=== PATIENT | male | born 1950 | race Caucasian/White ===

== ENCOUNTER 2018-03-29 05:46 | Day surgery (SDC) | payer MEDICARE ==
[2018-03-29] MEDS ORDERED: Ketamine HCl 50 MG/ML IV ONE (05:47)
[2018-03-29] MEDS ORDERED: DIPRIVAN 200 MG/20 ML IV ONE (05:47)
[2018-03-29] MEDS ORDERED: Lactated Ringers 1,000 ML IV ONE (06:18)
[2018-03-29] MEDS ORDERED: Lactated Ringers 1,000 ML IV SCH (06:30)
[2018-03-29 07:09] LABS: Hematocrit 42.9 % (42-50); Hemoglobin 14.9 gm/dl (12.5-18.0); Mean Corpuscular Hemoglobin 29.9 pg (26-32); Mean Corpuscular Hgb Concent. 34.7 g/dl (32-36); Mean Platelet Volume 10.7 fl (6-9.5); Platelet Count 213 K/mm3 (150-450); Red Blood Count 4.99 M/mm3 (4.1-5.6); White Blood Count 7.5 K/mm3 (4.0-10.5)
[2018-03-29 08:27] VITALS: BP 151/80; PULSE 73; O2SAT 95
--- NOTE | 2018-03-29 08:51 | OP ---
SURGERY DATE/TIME: 03/29/2018 0705 PREOPERATIVE DIAGNOSES: 1) Persistent gastroesophageal reflux disease. 2) History of gastric ulcer disease. 3) Screening colonoscopy. POSTOPERATIVE DIAGNOSES: 1) Normal EGD. 2) Normal colon. PROCEDURES: 1) EGD. 2) Colonoscopy. SURGEON: Salvador Arevalo M.D. ANESTHESIA: MAC by Dano Levy CRNA. ESTIMATED BLOOD LOSS: None. SPECIMENS: None. DESCRIPTION OF PROCEDURE: After informed written consent was obtained, the patient was taken to the endoscopy suite. She underwent monitored anesthesia and a bite block was inserted. The endoscope was then inserted into the posterior oropharynx and under direct visualization the esophagus was traversed. The esophageal mucosa was within normal limits free of lesions or defects. The gastroesophageal junction likewise was normal. The stomach had a normal rugated gastric mucosa free of any lesions or defects. The pylorus was traversed and the first and second portions of the duodenum was within normal limits as well. The scope was removed. Again on withdrawal the mucosal structures were free of lesions or defects. The scope was removed and the scopes were switched. A digital rectal exam showed normal sphincter tone and no internal lesions. The scope was inserted into the rectum and sequentially the entire colonic mucosa was traversed. The level of cecum was reached and verified with direct visualization of ileocecal valve. Upon withdrawal careful mucosal inspection revealed no gross abnormalities. Retroflexion was performed prior to withdrawal and was within normal limits as well. The scope was removed and the patient was transferred to the recovery room in good condition.
[2018-03-29 10:37] LABS: ALBUMIN 4.3 g/dL (3.5-5.0); ALKALINE PHOSPHATASE 149 U/L (38-126); ANION GAP 15.1 MEQ/L (5-15); BLOOD UREA NITROGEN 11 mg/dL (9-20); CHLORIDE 95 mmol/L (98-107); Calcium 9.7 mg/dL (8.4-10.2); Carbon Dioxide 26 mmol/L (22-30); Cholesterol 133 mg/dL (50-200); Creatinine 1 0.92 mg/dL (0.66-1.25); Glucose 123 mg/dL (74-106); HDL CHOLESTEROL 33 mg/dL (40-60); LDL, DIRECT 65 mg/dL (30-100); Potassium 4.2 mmol/L (3.5-5.1); SGOT/AST 21 U/L (17-59); SGPT/ALT 18 U/L (0-50); SODIUM 132 mmol/L (137-145); TRIGLYCERIDE 101 mg/dL (30-150); Total Protein 7.4 g/dL (6.3-8.2)
== END 2018-03-29 08:40 | disposition home or self-care (01) ==
LOC: SDC 05:46
PROVIDERS: ATTEND Family Medicine
DX: K21.9 Gastro-esophageal reflux disease without esophagitis (principal); Z87.11 Personal history of peptic ulcer disease; E66.9 Obesity, unspecified; Z12.11 Encounter for screening for malignant neoplasm of colon; J44.9 Chronic obstructive pulmonary disease, unspecified; E11.9 Type 2 diabetes mellitus without complications; Z79.4 Long term (current) use of insulin; Z79.899 Other long term (current) drug therapy
CPT/HCPCS: 36415; 80053; 80061; 82962; 83036; 83721; 84443; 85027; J2704

== ENCOUNTER 2020-01-31 10:39 | Emergency (ER) | payer MEDICARE ==
--- NOTE | 2020-01-31 11:07 | ERPHSYRPT ---
- History of Present Illness Time Seen by Provider: 01/31/20 10:43 Source: patient Exam Limitations: no limitations Patient Subjective Stated Complaint: Suicidal ideation Triage Nursing Assessment: Patient ambulated back to ED and transferred self to bed. Patient A+O X 3. Patient's skin pink, warm and dry. Patient complains of suicidal ideation for the past 2 months. Patient states he does have a plan and would jump off of his apartment building that is five stories high. Patient states he is depressed due to his children not having anything to do with him and he thinks his is cheating on him. Patient denies pain or discomfort. Physician History: Patient is here for suicidal ideation. Patient does have a plan. He states that he would jump off his building. Patient states that he has had suicide attempts in the past. Patient states that he is depressed secondary to his kids not visiting him and he believes that his is cheating on him. He has no fevers, chills, nausea, vomiting. No chest pain, shortness of breath. Allergies/Adverse Reactions: adhesive Adverse Reaction (Unknown, Verified 01/31/20 10:49) adhesive tape, swell and itches Home Medications: Ascorbate Calcium [Vitamin C] 500 mg PO DAILY 10/17/13 [History] Atorvastatin Calcium [Lipitor] 40 mg PO DAILY 10/17/13 [History] Calcium Carb & Citrate/Vit D3 [Calcium + Vitamin D3 Caplet] 1 each PO BID 10/17/13 [History] Echinacea 167 mg PO BID 10/17/13 [History] Lacosamide [Vimpat] 200 mg PO BID 10/17/13 [History] Levetiracetam [Keppra] 1,500 mg PO BID 10/17/13 [History] Metformin HCl [Metformin ER Osmotic] 500 mg PO BID 10/17/13 [History] PANTOPRAZOLE 40 mg Tablet [Protonix 40MG Tablet] 40 mg PO DAILY 10/17/13 [History] Vitamin E 400 unit PO DAILY 10/17/13 [History] Albuterol Sulfate [Proair Hfa] 2 puff IH UD PRN 03/25/15 [History] Cyanocobalamin (Vitamin B-12) [Vitamin B-12] 1,000 mcg SL DAILY 03/25/15 [History] Pregabalin 50 mg [Lyrica 50MG] 50 mg PO TID 03/25/15 [History] Tiotropium [place] [Spiriva] 18 mcg IH LUNCH 03/25/15 [History] Hx Tetanus, Diphtheria Vaccination/Date Given: No Hx Influenza Vaccination/Date Given: No Hx Pneumococcal Vaccination/Date Given: No Immunizations Up to Date: Yes Travel Risk - International Travel Have you traveled outside of the country in past 3 weeks: No - Coronavirus Screening Are you exhibiting any of the following symptoms?: No Close contact with a COVID-19 positive Pt in past 14-21 Days: No - Review of Systems Constitutional: No Fever, No Chills Eyes: No Symptoms Ears, Nose, & Throat: No Symptoms Respiratory: No Cough, No Dyspnea Cardiac: No Chest Pain, No Edema, No Syncope Abdominal/Gastrointestinal: No Abdominal Pain, No Nausea, No Vomiting, No Diarrhea Genitourinary Symptoms: No Dysuria Musculoskeletal: No Back Pain, No Neck Pain Skin: No Rash Neurological: No Dizziness, No Focal Weakness, No Sensory Changes Psychological: Suicidal Ideations Endocrine: No Symptoms All Other Systems: Reviewed and Negative - Past Medical History Pertinent Past Medical History: Yes Neurological History: Seizures ENT History: No Pertinent History Cardiac History: High Cholesterol, Other Respiratory History: COPD Endocrine Medical History: Diabetes Type II Musculoskeletal History: Arthritis, Osteoporosis, Other GI Medical History: GERD, Ulcer History: No Pertinent History Psycho-Social History: Depression Male Reproductive Disorders: No Pertinent History Other Medical History: Disc compressions, " Vascular nerve stimulator" - Past Surgical History Past Surgical History: Yes Neuro Surgical History: No Pertinent History Cardiac: Cardiac Catheterization Respiratory: No Pertinent History Gastrointestinal: Cholecystectomy, Other Genitourinary: No Pertinent History Musculoskeletal: No Pertinent History Male Surgical History: No Pertinent History, Testicular Surgery Other Surgical History: Two cysts removed- one from big toe and one from testical, " Vascular nerve stimulator" - Social History Smoking Status: Never smoker How long have you smoked: 6 months Exposure to second hand smoke: Yes Drug Use: none Patient Lives Alone: No - Nursing Vital Signs Nursing Vital Signs: Initial Vital Signs Temperature 97.9 F 01/31/20 10:50 Pulse Rate 102 H 01/31/20 10:50 Respiratory Rate 18 01/31/20 10:50 Blood Pressure 126/78 01/31/20 10:50 O2 Sat by Pulse Oximetry 97 01/31/20 10:50 Pain Scale Pain Intensity 0 - Physical Exam General Appearance: no apparent distress, alert Eye Exam: PERRL/EOMI, eyes nml inspection Ears, Nose, Throat Exam: normal ENT inspection, TMs normal, pharynx normal, moist mucous membranes Neck Exam: normal inspection, non-tender, supple, full range of motion Respiratory Exam: normal breath sounds, lungs clear, No respiratory distress Cardiovascular Exam: regular rate/rhythm, normal heart sounds, normal peripheral pulses Gastrointestinal/Abdomen Exam: soft, normal bowel sounds, No tenderness, No mass Back Exam: normal inspection, normal range of motion, No CVA tenderness, No vertebral tenderness Extremity Exam: normal inspection, normal range of motion, pelvis stable Neurologic Exam: alert, oriented x 3, cooperative, normal mood/affect, nml cerebellar function, nml station & gait, sensation nml, No motor deficits Skin Exam: normal color, warm, dry, No rash Lymphatic Exam: No adenopathy SpO2 Interpretation: normal SpO2: 97 Comments: 01/31/20 11:06 Sad affect and endorses suicidal ideation - Course EKG Interpreted by Me: RATE, Sinus Rhythm Ordered Tests: Active Orders 24 hr Category Date Time Status EKG-ER Only STAT Care 01/31/20 11:02 Active ACETAMINOPHEN Stat Lab 01/31/20 11:20 Completed CBC W DIFF Stat Lab 01/31/20 11:20 Completed CMP Stat Lab 01/31/20 11:20 Completed CULTURE,URINE Stat Lab 01/31/20 11:45 Received ETHYL ALCOHOL Stat Lab 01/31/20 11:20 Completed SALICYLATE Stat Lab 01/31/20 11:20 Completed UA W/RFX UR CULTURE Stat Lab 01/31/20 11:45 Completed Urine Triage Profile Stat Lab 01/31/20 11:45 Completed Medication Summary Discontinued Medications Generic Name Dose Route Start Last Admin Trade Name Freq PRN Reason Stop Dose Admin Albuterol/Ipratropium 3 ml 01/31/20 16:51 Duoneb 0.5-3 Mg/3 Ml Neb IH 01/31/20 16:52 STAT ONE Albuterol/Ipratropium Confirm 01/31/20 16:55 Duoneb 0.5-3 Mg/3 Ml Neb Administered 01/31/20 16:56 Dose 3 ml IH .STK-MED ONE Lab/Rad Data: Laboratory Result Diagrams 01/31/20 11:20 01/31/20 11:20 Laboratory Results 01/31/20 01/31/20 01/31/20 Range/Units 11:45 11:45 11:20 WBC (4.0-10.5) K/mm3 RBC (4.1-5.6) M/mm3 Hgb (12.5-18.0) gm/dl Hct (42-50) % MCV (78-100) fl MCH (26-32) pg MCHC (32-36) g/dl RDW (11.5-14.0) % Plt Count (150-450) K/mm3 MPV (7.5-11.0) fl Gran % (36.0-66.0) % Eos # (Auto) (0-0.5) Absolute Lymphs (auto) (1.0-4.6) Absolute Monos (auto) (0.0-1.3) Lymphocytes % (24.0-44.0) % Monocytes % (0.0-12.0) % Eosinophils % (0.00-5.0) % Basophils % (0.0-0.4) % Absolute Granulocytes (1.4-6.9) Basophils # (0-0.4) Sodium 135 L (137-145) mmol/L Potassium 4.3 (3.5-5.1) mmol/L Chloride 101 (98-107) mmol/L Carbon Dioxide 27 (22-30) mmol/L Anion Gap 11.2 (5-15) MEQ/L BUN 13 (9-20) mg/dL Creatinine 0.91 (0.66-1.25) mg/dL Estimated GFR > 60.0 ML/MIN Glucose 162 H (74-106) mg/dL Calcium 9.3 (8.4-10.2) mg/dL Total Bilirubin 0.60 (0.2-1.3) mg/dL AST 20 (17-59) U/L ALT 17 (0-50) U/L Alkaline Phosphatase 117 (38-126) U/L Serum Total Protein 6.9 (6.3-8.2) g/dL Albumin 4.0 (3.5-5.0) g/dL Urine Color YELLOW (YELLOW) Urine Appearance CLEAR (CLEAR) Urine pH 5.0 (5-6) Ur Specific [place] 1.021 (1.005-1.025) Urine Protein 100 (Negative) Urine Ketones NEGATIVE (NEGATIVE) Urine Blood NEGATIVE (0-5) Urban/ul Urine Nitrite NEGATIVE (NEGATIVE) Urine Bilirubin NEGATIVE (NEGATIVE) Urine Urobilinogen 4 (0-1) mg/dL Ur Leukocyte Esterase NEGATIVE (NEGATIVE) Urine WBC (Auto) 6-10 (0-5) /HPF Urine RBC (Auto) 0-2 (0-2) /HPF U Epithel Cells (Auto) RARE (FEW) /HPF Urine Bacteria (Auto) RARE (NEGATIVE) /HPF Urine Mucus (Auto) MODERATE (NEGATIVE) /HPF Urine Culture Reflexed YES (NO) Urine Glucose NEGATIVE (NEGATIVE) mg/dL Salicylates < 1.0 L (2-20) mg/dL Urine Opiates Level NEGATIVE (NEGATIVE) Ur Methadone NEGATIVE (NEGATIVE) Acetaminophen < 10 L (10-30) ug/ml Urine Barbiturates NEGATIVE (NEGATIVE) Ur Phencyclidine (PCP) NEGATIVE (NEGATIVE) Urine Amphetamine NEGATIVE (NEGATIVE) U Benzodiazepine Level NEGATIVE (NEGATIVE) Urine Cocaine NEGATIVE (NEGATIVE) Urine Marijuana (THC) NEGATIVE (NEGATIVE) Ethyl Alcohol < 10 (0-10) mg/dL 01/31/20 Range/Units 11:20 WBC 7.7 (4.0-10.5) K/mm3 RBC 4.83 (4.1-5.6) M/mm3 Hgb 14.3 (12.5-18.0) gm/dl Hct 44.1 (42-50) % MCV 91.3 (78-100) fl MCH 29.6 (26-32) pg MCHC 32.4 (32-36) g/dl RDW 14.3 H (11.5-14.0) % Plt Count 217 (150-450) K/mm3 MPV 10.8 (7.5-11.0) fl Gran % 73.5 H (36.0-66.0) % Eos # (Auto) 0.09 (0-0.5) Absolute Lymphs (auto) 1.27 (1.0-4.6) Absolute Monos (auto) 0.65 (0.0-1.3) Lymphocytes % 16.5 L (24.0-44.0) % Monocytes % 8.5 (0.0-12.0) % Eosinophils % 1.2 (0.00-5.0) % Basophils % 0.3 (0.0-0.4) % Absolute Granulocytes 5.65 (1.4-6.9) Basophils # 0.02 (0-0.4) Sodium (137-145) mmol/L Potassium (3.5-5.1) mmol/L Chloride (98-107) mmol/L Carbon Dioxide (22-30) mmol/L Anion Gap (5-15) MEQ/L BUN (9-20) mg/dL Creatinine (0.66-1.25) mg/dL Estimated GFR ML/MIN Glucose (74-106) mg/dL Calcium (8.4-10.2) mg/dL Total Bilirubin (0.2-1.3) mg/dL AST (17-59) U/L ALT (0-50) U/L Alkaline Phosphatase (38-126) U/L Serum Total Protein (6.3-8.2) g/dL Albumin (3.5-5.0) g/dL Urine Color (YELLOW) Urine Appearance (CLEAR) Urine pH (5-6) Ur Specific [place] (1.005-1.025) Urine Protein (Negative) Urine Ketones (NEGATIVE) Urine Blood (0-5) Urban/ul Urine Nitrite (NEGATIVE) Urine Bilirubin (NEGATIVE) Urine Urobilinogen (0-1) mg/dL Ur Leukocyte Esterase (NEGATIVE) Urine WBC (Auto) (0-5) /HPF Urine RBC (Auto) (0-2) /HPF U Epithel Cells (Auto) (FEW) /HPF Urine Bacteria (Auto) (NEGATIVE) /HPF Urine Mucus (Auto) (NEGATIVE) /HPF Urine Culture Reflexed (NO) Urine Glucose (NEGATIVE) mg/dL Salicylates (2-20) mg/dL Urine Opiates Level (NEGATIVE) Ur Methadone (NEGATIVE) Acetaminophen (10-30) ug/ml Urine Barbiturates (NEGATIVE) Ur Phencyclidine (PCP) (NEGATIVE) Urine Amphetamine (NEGATIVE) U Benzodiazepine Level (NEGATIVE) Urine Cocaine (NEGATIVE) Urine Marijuana (THC) (NEGATIVE) Ethyl Alcohol (0-10) mg/dL - Progress Progress: improved Progress Note: 01/31/20 11:06 We will do basic psychiatric labs, EKG, consult to the [facility]. 01/31/20 16:58 Patient was medically cleared at this point time. Transferred to [facility] after evaluation. They felt that he needed to be inpatient criteria. Therefore we admit the patient. Counseled pt/family regarding: lab results, diagnosis, need for follow-up - Departure Departure Disposition: Transfer Clinical Impression: Suicidal ideation Condition: Stable Critical Care Time: No Referrals: CITLALLI GARCIA MD [Primary Care Provider] - Instructions: Bipolar Disorder (DC)
[2020-01-31 11:36] LABS: Absolute Neutrophil Ct (ANC) 5.65 (1.4-6.9); BASOPHIL % 0.3 % (0.0-0.4); Basophil (Absolute #) 0.02 (0-0.4); Eosinophil % 1.2 % (0.00-5.0); Eosinophil (Absolute #) 0.09 (0-0.5); Hematocrit 44.1 % (42-50); Hemoglobin 14.3 gm/dl (12.5-18.0); Lymphocyte (Absolute #) 1.27 (1.0-4.6); Lymphocytes % 16.5 % (24.0-44.0); Mean Cell Volume 91.3 fl (78-100); Mean Corpuscular Hemoglobin 29.6 pg (26-32); Mean Corpuscular Hgb Concent. 32.4 g/dl (32-36); Mean Platelet Volume 10.8 fl (7.5-11.0); Monocyte (Absolute #) 0.65 (0.0-1.3); Monocytes % 8.5 % (0.0-12.0); Neutrophil % 73.5 % (36.0-66.0); Platelet Count 217 K/mm3 (150-450); Red Blood Count 4.83 M/mm3 (4.1-5.6); Red Cell Distribution Width 14.3 % (11.5-14.0); White Blood Count 7.7 K/mm3 (4.0-10.5)
[2020-01-31 11:47] LABS: ALKALINE PHOSPHATASE 117 U/L (38-126); ANION GAP 11.2 MEQ/L (5-15); BLOOD UREA NITROGEN 13 mg/dL (9-20); CHLORIDE 101 mmol/L (98-107); Calcium 9.3 mg/dL (8.4-10.2); Carbon Dioxide 27 mmol/L (22-30); Creatinine 1 0.91 mg/dL (0.66-1.25); Glucose 162 mg/dL (74-106); Potassium 4.3 mmol/L (3.5-5.1); SGOT/AST 20 U/L (17-59); SGPT/ALT 17 U/L (0-50); SODIUM 135 mmol/L (137-145); Total Protein 6.9 g/dL (6.3-8.2)
[2020-01-31 11:48] LABS: ACETAMINOPHEN < 10 ug/ml (10-30); ETHYL ALCOHOL < 10 mg/dL (0-10); SALICYLATE < 1.0 mg/dL (2-20)
[2020-01-31 12:04] LABS: Appearance CLEAR (CLEAR); Bacteria RARE /HPF (NEGATIVE); Bilirubin NEGATIVE (NEGATIVE); Blood NEGATIVE Ery/ul (0-5); Epithelial Cells RARE /HPF (FEW); Glucose NEGATIVE (NEGATIVE); Ketones NEGATIVE (NEGATIVE); Leukocyte Esterase NEGATIVE (NEGATIVE); Mucus MODERATE /HPF (NEGATIVE); Nitrite NEGATIVE (NEGATIVE); Protein,Urine Dip 100 (Negative); RBC 0-2 /HPF (0-2); Specific Gravity 1.021 (1.005-1.025); Urobilinogen 4 mg/dL (0-1)
[2020-01-31 12:09] LABS: Amphetamine,Urine NEGATIVE (NEGATIVE); Barbiturate,Urine NEGATIVE (NEGATIVE); Benzodiazepine,Urine NEGATIVE (NEGATIVE); Cocaine,Urine NEGATIVE (NEGATIVE); Methadone,Urine NEGATIVE (NEGATIVE); Opiate,Urine NEGATIVE (NEGATIVE); THC,Urine NEGATIVE (NEGATIVE)
[2020-01-31 12:19] LABS: PCP,Urine NEGATIVE (NEGATIVE)
[2020-01-31 14:05] VITALS: BP 119/58
[2020-01-31] MEDS ORDERED: DUONEB 0.5-3 MG/3 ml Neb IH ONE ×2 (16:51→16:55)
[2020-01-31 17:01] VITALS: PULSE 68; O2SAT 98
== END 2020-01-31 17:34 | disposition short-term general hospital (02) ==
LOC: ED 10:39
DX: R45.851 Suicidal ideations (principal); G40.909 Epilepsy, unspecified, not intractable, without status epilepticus; J44.9 Chronic obstructive pulmonary disease, unspecified; Z79.899 Other long term (current) drug therapy
CPT/HCPCS: 36415; 80053; 80307; 81001; 85025; 87086; 90791; 93005; 94640; 99285; G0480; Q3014; A9270-GY

== ENCOUNTER 2020-07-08 09:11 | Inpatient (IN) | payer MEDICARE ==
--- NOTE | 2020-07-08 09:14 | ERPHSYRPT ---
- History of Present Illness Time Seen by Provider: 07/08/20 09:14 Source: patient, family Exam Limitations: clinical condition Physician History: This is a 70-year-old white male who has confusion that started yesterday. The patient has a history of seizure disorder and is on Keppra. He also has history of depression and is on 3 medications that were started within the last few weeks and they include Cymbalta, Remeron and lithium. [place] was started within the last couple of weeks. Patient has a history of suicidal ideation and was recently discharged from [facility] inpatient therapy because of his symptoms. Patient has had suicidal attempts in the past. Patient has a history of COPD, gastroesophageal reflux disease and diabetes. Patient has not had a head injury. Patient ambulated on his own to the emergency room and into his patient room without difficulty. Patient states he has no pain anywhere. Timing/Duration: yesterday Severity: moderate Character of Deficits: none Deficits: no difficulties Baseline/Normal Cognition: alert oriented x 3 Current Cognition: alert but confused Baseline Gait: walks w/o assistance Associated Symptoms: confusion Allergies/Adverse Reactions: adhesive Adverse Reaction (Unknown, Verified 07/08/20 10:10) adhesive tape, swell and itches Home Medications: Ascorbate Calcium [Vitamin C] 500 mg PO TID 10/17/13 [History] Atorvastatin Calcium [Lipitor] 40 mg PO DAILY 10/17/13 [History] Calcium Carb & Citrate/Vit D3 [Calcium + Vitamin D3 Caplet] 1 each PO BID 10/17/13 [History] Echinacea 167 mg PO BID 10/17/13 [History] Lacosamide [Vimpat] 200 mg PO TID 10/17/13 [History] Metformin HCl [Metformin ER Osmotic] 500 mg PO BID 10/17/13 [History] PANTOPRAZOLE 40 mg Tablet [Protonix 40MG Tablet] 40 mg PO DAILY 10/17/13 [History] Vitamin E 400 unit PO DAILY 10/17/13 [History] Albuterol Sulfate [Proair Hfa] 2 puff IH UD PRN 03/25/15 [History] Cyanocobalamin (Vitamin B-12) [Vitamin B-12] 1,000 mcg SL DAILY 03/25/15 [History] Pregabalin 50 mg [Lyrica 50MG] 50 mg PO TID 03/25/15 [History] Brivaracetam [Briviact] 1 tab PO BID 07/08/20 [History] Budesonide/Formoterol Fumarate [Symbicort 160-4.5 Mcg Inhaler] 1 puff IH DAILY 07/08/20 [History] Duloxetine HCl [Cymbalta] 1 tab PO DAILY 07/08/20 [History] Iron 1 tab PO DAILY 07/08/20 [History] Lisinopril 10 mg [Zestril 10 MG] 1 tab PO DAILY 07/08/20 [History] [place] Carbonate 1 tab PO DAILY 07/08/20 [History] Meloxicam 1 tab PO DAILY 07/08/20 [History] Mirtazapine 30 mg [Remeron 30 mg] 1 tab PO HS 07/08/20 [History] Hx Tetanus, Diphtheria Vaccination/Date Given: No Hx Influenza Vaccination/Date Given: No Hx Pneumococcal Vaccination/Date Given: No Travel Risk - International Travel Have you traveled outside of the country in past 3 weeks: No - Coronavirus Screening Are you exhibiting any of the following symptoms?: No Close contact with a COVID-19 positive Pt in past 14-21 Days: No - Review of Systems Constitutional: No Symptoms Eyes: No Symptoms Ears, Nose, & Throat: No Symptoms Respiratory: No Symptoms Cardiac: No Symptoms Abdominal/Gastrointestinal: No Symptoms Genitourinary Symptoms: No Symptoms Musculoskeletal: No Symptoms Skin: No Symptoms Neurological: Other Psychological: No Symptoms (Confusion) Endocrine: No Symptoms Hematologic/Lymphatic: No Symptoms Immunological/Allergic: No Symptoms All Other Systems: Reviewed and Negative - Past Medical History Pertinent Past Medical History: Yes Neurological History: Seizures ENT History: No Pertinent History Cardiac History: High Cholesterol, Other Respiratory History: COPD Endocrine Medical History: Diabetes Type II Musculoskeletal History: Arthritis, Osteoporosis, Other GI Medical History: GERD, Ulcer History: No Pertinent History Psycho-Social History: Depression Male Reproductive Disorders: No Pertinent History Other Medical History: Disc compressions, " Vascular nerve stimulator" - Past Surgical History Past Surgical History: Yes Neuro Surgical History: No Pertinent History Cardiac: Cardiac Catheterization Respiratory: No Pertinent History Gastrointestinal: Cholecystectomy, Other Genitourinary: No Pertinent History Musculoskeletal: No Pertinent History Male Surgical History: No Pertinent History, Testicular Surgery Other Surgical History: Two cysts removed- one from big toe and one from testical, " Vascular nerve stimulator" - Social History Smoking Status: Never smoker How long have you smoked: 6 months Exposure to second hand smoke: Yes Drug Use: none Patient Lives Alone: No - Nursing Vital Signs Nursing Vital Signs: Initial Vital Signs Temperature 97.7 F 07/08/20 09:29 Pulse Rate 107 H 07/08/20 09:29 Respiratory Rate 20 07/08/20 09:29 Blood Pressure 125/70 07/08/20 09:29 O2 Sat by Pulse Oximetry 96 07/08/20 09:29 Pain Scale Pain Intensity 0 - Morris Coma Scale Best Eye Response (Jennifer): (4) open spontaneously Best Verbal Response (Morris): (4) confused conversation Best Motor Response (Jennifer): (6) obeys commands Jennifer Total: 14 - Physical Exam General Appearance: no apparent distress, alert, obese Eye Exam: bilateral eye: normal inspection, PERRL, EOMI Ears, Nose, Throat Exam: normal ENT inspection, moist mucous membranes Neck Exam: normal inspection, non-tender, supple, full range of motion Respiratory: normal breath sounds, lungs clear, airway intact, No chest tenderness, No respiratory distress Cardiovascular: regular rate/rhythm, normal heart sounds, normal peripheral pulses Gastrointestinal: soft, normal bowel sounds, No tenderness Rectal Exam: not done Back Exam: normal inspection, normal range of motion, No CVA tenderness, No vertebral tenderness Extremity Exam: normal inspection, normal range of motion, pelvis stable Mental Status: alert, cooperative, disoriented to place, 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 Exam: normal hearing, normal speech, PERRL, tongue midline, No facial droop Coordination/Gait: normal finger to nose, normal gait, normal cerebellar function Motor/Sensory: no motor deficit, no sensory deficit, no pronator drift Skin Exam: normal color, warm, dry SpO2 Interpretation: normal O2 Delivery: Room Air - Course Nursing assessment & vital signs reviewed: Yes EKG Interpreted by Me: RATE (96), Sinus Rhythm, NORMAL AXIS, NORMAL INTERVALS, NORMAL QRS, Other (No comparison EKG) Ordered Tests: Active Orders 24 hr Category Date Time Status Member Certification Manager STAT Care 07/08/20 09:41 Active Clean Catch Urine Specimen STAT Care 07/08/20 09:39 Active EKG-ER Only STAT Care 07/08/20 09:39 Active IV Insertion STAT Care 07/08/20 09:39 Active Pulse Oximetry (ED) STAT Care 07/08/20 09:39 Active cath [Cath for Specimen-Straight] STAT Care 07/08/20 11:45 Active HEAD WITHOUT CONTRAST [CT] Stat Exams 07/08/20 09:40 Completed ACETAMINOPHEN Stat Lab 07/08/20 10:10 Completed CBC W DIFF Stat Lab 07/08/20 10:10 Completed CMP Stat Lab 07/08/20 10:10 Completed CULTURE,URINE Stat Lab 07/08/20 09:45 Received ETHYL ALCOHOL Stat Lab 07/08/20 10:10 Completed LITHIUM Stat Lab 07/08/20 Ordered POCT GLUCOSE Stat Lab 07/08/20 09:37 Completed SALICYLATE Stat Lab 07/08/20 10:10 Completed UA W/RFX UR CULTURE Stat Lab 07/08/20 09:45 Completed Urine Triage Profile Stat Lab 07/08/20 09:45 Ordered Transfer Order Routine Transfer 07/08/20 Ordered Medication Summary Generic Name Dose Route Start Last Admin Trade Name Yonas PRN Reason Stop Dose Admin Sodium Chloride 500 mls @ 500 mls/hr 07/08/20 12:18 07/08/20 12:38 Sodium Chloride 0.9% 500 Ml IV 07/08/20 13:17 500 mls/hr .Q1H ONE Administration Lab/Rad Data: Laboratory Result Diagrams 07/08/20 10:10 07/08/20 10:10 Laboratory Results 07/08/20 07/08/20 07/08/20 Range/Units 10:10 10:10 10:10 WBC 8.3 (4.0-10.5) K/mm3 RBC 4.72 (4.1-5.6) M/mm3 Hgb 13.5 (12.5-18.0) gm/dl Hct 42.5 (42-50) % MCV 90.0 (78-100) fl MCH 28.6 (26-32) pg MCHC 31.8 L (32-36) g/dl RDW 14.4 H (11.5-14.0) % Plt Count 237 (150-450) K/mm3 MPV 11.0 (7.5-11.0) fl Gran % 77.6 H (36.0-66.0) % Eos # (Auto) 0.05 (0-0.5) Absolute Lymphs (auto) 1.12 (1.0-4.6) Absolute Monos (auto) 0.67 (0.0-1.3) Lymphocytes % 13.5 L (24.0-44.0) % Monocytes % 8.1 (0.0-12.0) % Eosinophils % 0.6 (0.00-5.0) % Basophils % 0.2 (0.0-0.4) % Absolute Granulocytes 6.41 (1.4-6.9) Basophils # 0.02 (0-0.4) Sodium 137 (137-145) mmol/L Potassium 4.8 (3.5-5.1) mmol/L Chloride 103 (98-107) mmol/L Carbon Dioxide 25 (22-30) mmol/L Anion Gap 14.1 (5-15) MEQ/L BUN 24 H (9-20) mg/dL Creatinine 1.41 H (0.66-1.25) mg/dL Estimated GFR 53.1 ML/MIN Glucose 205 H (74-106) mg/dL POC Glucometer (74 to 106) mg/dL Calcium 9.9 (8.4-10.2) mg/dL Total Bilirubin 0.60 (0.2-1.3) mg/dL AST 29 (17-59) U/L ALT 41 (0-50) U/L Alkaline Phosphatase 134 H (38-126) U/L Ammonia < 9 L (9-30) umol/L Serum Total Protein 7.3 (6.3-8.2) g/dL Albumin 4.2 (3.5-5.0) g/dL Urine Color (YELLOW) Urine Appearance (CLEAR) Urine pH (5-6) Ur Specific [place] (1.005-1.025) Urine Protein (Negative) Urine Ketones (NEGATIVE) Urine Blood (0-5) Urban/ul Urine Nitrite (NEGATIVE) Urine Bilirubin (NEGATIVE) Urine Urobilinogen (0-1) mg/dL Ur Leukocyte Esterase (NEGATIVE) Urine WBC (Auto) (0-5) /HPF Urine RBC (Auto) (0-2) /HPF U Epithel Cells (Auto) (FEW) /HPF Urine Bacteria (Auto) (NEGATIVE) /HPF Urine Mucus (Auto) (NEGATIVE) /HPF Urine Culture Reflexed (NO) Urine Glucose (NEGATIVE) mg/dL Salicylates < 1.0 L (2-20) mg/dL Acetaminophen < 10 L (10-30) ug/ml Ethyl Alcohol < 10 (0-10) mg/dL 07/08/20 07/08/20 Range/Units 09:45 09:37 WBC (4.0-10.5) K/mm3 RBC (4.1-5.6) M/mm3 Hgb (12.5-18.0) gm/dl Hct (42-50) % MCV (78-100) fl MCH (26-32) pg MCHC (32-36) g/dl RDW (11.5-14.0) % Plt Count (150-450) K/mm3 MPV (7.5-11.0) fl Gran % (36.0-66.0) % Eos # (Auto) (0-0.5) Absolute Lymphs (auto) (1.0-4.6) Absolute Monos (auto) (0.0-1.3) Lymphocytes % (24.0-44.0) % Monocytes % (0.0-12.0) % Eosinophils % (0.00-5.0) % Basophils % (0.0-0.4) % Absolute Granulocytes (1.4-6.9) Basophils # (0-0.4) Sodium (137-145) mmol/L Potassium (3.5-5.1) mmol/L Chloride (98-107) mmol/L Carbon Dioxide (22-30) mmol/L Anion Gap (5-15) MEQ/L BUN (9-20) mg/dL Creatinine (0.66-1.25) mg/dL Estimated GFR ML/MIN Glucose (74-106) mg/dL POC Glucometer 228 H (74 to 106) mg/dL Calcium (8.4-10.2) mg/dL Total Bilirubin (0.2-1.3) mg/dL AST (17-59) U/L ALT (0-50) U/L Alkaline Phosphatase (38-126) U/L Ammonia (9-30) umol/L Serum Total Protein (6.3-8.2) g/dL Albumin (3.5-5.0) g/dL Urine Color YELLOW (YELLOW) Urine Appearance SLIGHTLY CLOUDY (CLEAR) Urine pH 5.0 (5-6) Ur Specific [place] 1.023 (1.005-1.025) Urine Protein 30 (Negative) Urine Ketones NEGATIVE (NEGATIVE) Urine Blood NEGATIVE (0-5) Urban/ul Urine Nitrite NEGATIVE (NEGATIVE) Urine Bilirubin NEGATIVE (NEGATIVE) Urine Urobilinogen NEGATIVE (0-1) mg/dL Ur Leukocyte Esterase NEGATIVE (NEGATIVE) Urine WBC (Auto) 3-5 (0-5) /HPF Urine RBC (Auto) 16-25 (0-2) /HPF U Epithel Cells (Auto) NONE (FEW) /HPF Urine Bacteria (Auto) RARE (NEGATIVE) /HPF Urine Mucus (Auto) SLIGHT (NEGATIVE) /HPF Urine Culture Reflexed YES (NO) Urine Glucose NEGATIVE (NEGATIVE) mg/dL Salicylates (2-20) mg/dL Acetaminophen (10-30) ug/ml Ethyl Alcohol (0-10) mg/dL - Progress Progress: unchanged Progress Note: 07/08/20 11:22 CAT scan of the head without contrast shows age-appropriate global atrophy with degenerative microischemia. 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 There are no acute intracranial abnormalities 07/08/20 12:32 Medical screening exam: This patient has confusion of unknown origin. He did start a new medication, lithium, 2 weeks ago. We are going to check a lithium level. I did speak with Dr. Pandey who is covering for the patient's primary care doctor Dr. Garcia. We will bring him in for observation and recheck labs tomorrow and gently rehydrate him. Counseled pt/family regarding: lab results, diagnosis, rad results - Departure Departure Disposition: Observation Clinical Impression: Confusion Condition: Stable Critical Care Time: No Referrals: CITLALLI GARCIA MD [Primary Care Provider] -
--- NOTE | 2020-07-08 10:16 | XRAY ---
Indication: Confusion. Possible stroke. Multiple contiguous axial images obtained through the head without contrast. Comparison: None Age-appropriate global atrophy and minimal periventricular degenerative micro-ischemia. 8 mm right basal ganglia and 5 mm left basal ganglia remote appearing infarcts. No acute intracranial hemorrhage, abnormal extra-axial fluid collection, or mass effect. Fourth ventricle is midline without hydrocephalus. Bony calvarium intact. Visualized paranasal sinuses and mastoid air cells are clear. Impression: Atrophy and degenerative micro-ischemia within normal limits for patient's age. 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 No acute intracranial abnormalities.
[2020-07-08 10:20] LABS: Absolute Neutrophil Ct (ANC) 6.41 (1.4-6.9); BASOPHIL % 0.2 % (0.0-0.4); Basophil (Absolute #) 0.02 (0-0.4); Eosinophil % 0.6 % (0.00-5.0); Eosinophil (Absolute #) 0.05 (0-0.5); Hematocrit 42.5 % (42-50); Hemoglobin 13.5 gm/dl (12.5-18.0); Lymphocyte (Absolute #) 1.12 (1.0-4.6); Lymphocytes % 13.5 % (24.0-44.0); Mean Corpuscular Hemoglobin 28.6 pg (26-32); Mean Corpuscular Hgb Concent. 31.8 g/dl (32-36); Monocyte (Absolute #) 0.67 (0.0-1.3); Monocytes % 8.1 % (0.0-12.0); Neutrophil % 77.6 % (36.0-66.0); Platelet Count 237 K/mm3 (150-450); Red Blood Count 4.72 M/mm3 (4.1-5.6); Red Cell Distribution Width 14.4 % (11.5-14.0); White Blood Count 8.3 K/mm3 (4.0-10.5)
[2020-07-08 10:36] LABS: ACETAMINOPHEN < 10 ug/ml (10-30); ALBUMIN 4.2 g/dL (3.5-5.0); ALKALINE PHOSPHATASE 134 U/L (38-126); ANION GAP 14.1 MEQ/L (5-15); BLOOD UREA NITROGEN 24 mg/dL (9-20); CHLORIDE 103 mmol/L (98-107); Calcium 9.9 mg/dL (8.4-10.2); Carbon Dioxide 25 mmol/L (22-30); Creatinine 1 1.41 mg/dL (0.66-1.25); EST GLOMERULAR FILTRATION RATE 53.1 ML/MIN; ETHYL ALCOHOL < 10 mg/dL (0-10); Glucose 205 mg/dL (74-106); Potassium 4.8 mmol/L (3.5-5.1); SALICYLATE < 1.0 mg/dL (2-20); SGOT/AST 29 U/L (17-59); SGPT/ALT 41 U/L (0-50); SODIUM 137 mmol/L (137-145); Total Protein 7.3 g/dL (6.3-8.2)
[2020-07-08 12:05] LABS: Appearance SLIGHTLY CLOUDY (CLEAR); Bilirubin NEGATIVE (NEGATIVE); Blood NEGATIVE Ery/ul (0-5); Glucose NEGATIVE (NEGATIVE); Ketones NEGATIVE (NEGATIVE); Leukocyte Esterase NEGATIVE (NEGATIVE); Mucus SLIGHT /HPF (NEGATIVE); Nitrite NEGATIVE (NEGATIVE); Protein,Urine Dip 30 (Negative); Specific Gravity 1.023 (1.005-1.025); Urobilinogen NEGATIVE mg/dL (0-1)
[2020-07-08 12:13] LABS: Bacteria RARE /HPF (NEGATIVE)
[2020-07-08] MEDS ORDERED: Sodium Chloride 0.9% 500 ML 500 ML IV ONE ×2 (12:18→12:37)
[2020-07-08 13:10] LABS: Amphetamine,Urine NEGATIVE (NEGATIVE); Barbiturate,Urine NEGATIVE (NEGATIVE); Benzodiazepine,Urine NEGATIVE (NEGATIVE); Cocaine,Urine NEGATIVE (NEGATIVE); Methadone,Urine NEGATIVE (NEGATIVE); Opiate,Urine NEGATIVE (NEGATIVE); PCP,Urine NEGATIVE (NEGATIVE); THC,Urine NEGATIVE (NEGATIVE)
[2020-07-08] MEDS ORDERED: TYLENOL 325 MG PO PRN (16:03)
[2020-07-08] MEDS ORDERED: Zofran 4 MG/2 ML VIAL IV PRN (16:03)
[2020-07-08] MEDS: Lyrica 50MG PO SCH (23:22)
[2020-07-08] MEDS: Sodium Chloride 0.9% 1000 ML 1,000 ML IV SCH (23:22)
[2020-07-09 05:35] LABS: Absolute Neutrophil Ct (ANC) 4.87 (1.4-6.9); BASOPHIL % 0.4 % (0.0-0.4); Basophil (Absolute #) 0.03 (0-0.4); Eosinophil % 1.6 % (0.00-5.0); Eosinophil (Absolute #) 0.12 (0-0.5); Hematocrit 39.9 % (42-50); Hemoglobin 12.6 gm/dl (12.5-18.0); Lymphocyte (Absolute #) 1.61 (1.0-4.6); Lymphocytes % 21.2 % (24.0-44.0); Mean Cell Volume 91.5 fl (78-100); Mean Corpuscular Hemoglobin 28.9 pg (26-32); Mean Corpuscular Hgb Concent. 31.6 g/dl (32-36); Mean Platelet Volume 11.3 fl (7.5-11.0); Monocyte (Absolute #) 0.95 (0.0-1.3); Monocytes % 12.5 % (0.0-12.0); Neutrophil % 64.3 % (36.0-66.0); Platelet Count 237 K/mm3 (150-450); Red Blood Count 4.36 M/mm3 (4.1-5.6); Red Cell Distribution Width 14.7 % (11.5-14.0); White Blood Count 7.6 K/mm3 (4.0-10.5)
[2020-07-09 05:46] LABS: ANION GAP 11.9 MEQ/L (5-15); BILIRUBIN,TOTAL 0.9 mg/dL (0.2-1.3); Calcium 9.4 mg/dL (8.4-10.2); Creatinine 1 1.52 mg/dL (0.66-1.25); EST GLOMERULAR FILTRATION RATE 48.7 ML/MIN; Potassium 5.2 mmol/L (3.5-5.1); Total Protein 6.9 g/dL (6.3-8.2)
[2020-07-09] MEDS: Lyrica 50MG PO SCH ×3 (07:52→21:42)
--- NOTE | 2020-07-09 09:10 | PCM.HP ---
History of Present Illness - Chief Complaint Chief Complaint: confusion History of Present Illness: Mr.DUNIGAN GENAO is a 70 year old male with confusion, he came to the ER yesterday complaining of confusion, foggy thinking that began suddenly in the day prior to arrival. Of note, he was recently hospitalized at [facility] inpatient for suicidal ideations and was started on new medication including lithium in the last 2 weeks, he is unable to be more specific about the timing of the new m edication. He denies pain, no fever, no cough, no GI symptoms. He actually feels better today than he did yesterday, he is alert, oriented and answers questions appropriately today and is eating breakfast. - Review of Systems Constitutional: No Fever, No Chills Respiratory: No Cough, No Short Of Breath Cardiac: No Chest Pain, No Edema, No Syncope Abdominal/Gastrointestinal: No Abdominal Pain, No Nausea, No Vomiting, No Diarrhea Neurological: No Dizziness, No Focal Weakness, No Gait Changes, No Headache, No Paralysis, No Seizure, No Sensory Changes, No Speech Changes Psychological: Memory Loss, No Alcohol Abuse, No Drug Abuse, No Suicidal Ideations, No Homicidal Ideations All Other Systems: Reviewed and Negative Medications & Allergies Home Medications: Home Medication List Ascorbate Calcium [Vitamin C] 500 mg PO TID 10/17/13 [History Confirmed 07/08/20] Atorvastatin Calcium [Lipitor] 40 mg PO DAILY 10/17/13 [History Confirmed 07/08/20] Calcium Carb & Citrate/Vit D3 [Calcium + Vitamin D3 Caplet] 1 each PO BID 10/17/13 [History Confirmed 07/08/20] Echinacea 167 mg PO BID 10/17/13 [History Confirmed 07/08/20] Lacosamide [Vimpat] 200 mg PO TID 10/17/13 [History Confirmed 07/08/20] Metformin HCl [Metformin ER Osmotic] 500 mg PO BID 10/17/13 [History Confirmed 07/08/20] PANTOPRAZOLE 40 mg Tablet [Protonix 40MG Tablet] 40 mg PO DAILY 10/17/13 [History Confirmed 07/08/20] Vitamin E 400 unit PO DAILY 10/17/13 [History Confirmed 07/08/20] Albuterol Sulfate [Proair Hfa] 2 puff IH UD PRN 03/25/15 [History Confirmed 07/08/20] Cyanocobalamin (Vitamin B-12) [Vitamin B-12] 1,000 mcg SL DAILY 03/25/15 [History Confirmed 07/08/20] Pregabalin 50 mg [Lyrica 50MG] 50 mg PO TID 03/25/15 [History Confirmed 07/08/20] Brivaracetam [Briviact] 1 tab PO BID 07/08/20 [History Confirmed 07/08/20] Budesonide/Formoterol Fumarate [Symbicort 160-4.5 Mcg Inhaler] 1 puff IH DAILY 07/08/20 [History Confirmed 07/08/20] Duloxetine HCl [Cymbalta] 1 tab PO DAILY 07/08/20 [History Confirmed 07/08/20] Iron 1 tab PO DAILY 07/08/20 [History Confirmed 07/08/20] Lisinopril 10 mg [Zestril 10 MG] 1 tab PO DAILY 07/08/20 [History Confirmed 07/08/20] Mcmurray Carbonate 1 tab PO DAILY 07/08/20 [History Confirmed 07/08/20] Meloxicam 1 tab PO DAILY 07/08/20 [History Confirmed 07/08/20] Mirtazapine 30 mg [Remeron 30 mg] 1 tab PO HS 07/08/20 [History Confirmed 07/08/20] Allergies/Adverse Reactions: Allergies Allergy/AdvReac Type Severity Reaction Status Date / Time adhesive AdvReac Unknown Verified 07/08/20 10:10 - Past Medical History Past Medical History: Yes Neurological History: Seizures ENT History: No Pertinent History Cardiac History: High Cholesterol, Other Respiratory History: COPD Endocrine Medical History: Diabetes Type II Musculoskelatal History: Arthritis, Osteoporosis, Other GI Medical History: GERD, Ulcer History: No Pertinent History Pyscho-Social History: Depression Male Reproductive Disorders: No Pertinent History Comment: Disc compressions, " Vascular nerve stimulator" - Past Surgical History Past Surgical History: Yes Neuro Surgical History: No Pertinent History Cardiac History: Cardiac Catheterization Respiratory Surgery: No Pertinent History GI Surgical History: Cholecystectomy, Other Genitourinary Surgical Hx: No Pertinent History Musculskeletal Surgical Hx: No Pertinent History Male Surgical History: No Pertinent History, Testicular Surgery Other Surgical History: Two cysts removed- one from big toe and one from testical, " Vascular nerve stimulator" - Social History Smoking Status: Unknown if ever smoked How long have you smoked: 6 months Exposure to second hand smoke: Yes Alcohol: None Drug Use: none - Physical Exam Vital Signs: Vital Signs - 24 hr Temp Pulse Resp BP Pulse Ox 07/09/20 07:38 97.8 F 72 18 123/56 94 L 07/09/20 07:34 94 L 07/09/20 04:15 97.9 F 79 21 132/79 97 07/09/20 00:00 97.2 F 73 18 124/55 93 L 07/08/20 20:00 97.5 F 83 20 113/91 93 L 07/08/20 18:03 97.2 F 101 H 120/56 92 L 07/08/20 16:03 92 L 07/08/20 16:00 97.2 F 101 H 120/56 94 L 07/08/20 14:17 98/60 07/08/20 13:39 78 18 108/55 98 07/08/20 12:00 94 H 20 121/60 96 07/08/20 11:30 92 H 21 121/60 96 07/08/20 10:22 89 16 106/64 95 07/08/20 09:46 95 07/08/20 09:29 97.7 F 107 H 20 125/70 96 General Appearance: no apparent distress, obese Neurologic Exam: alert, oriented x 3, cooperative, industrial hygenist II-XII nml as tested, normal mood/affect, No motor deficits, No sensory deficit, No confusion, No agitation Respiratory Exam: normal breath sounds, lungs clear, No respiratory distress Cardiovascular Exam: regular rate/rhythm, normal heart sounds, normal peripheral pulses Gastrointestinal/Abdomen Exam: soft, normal bowel sounds, No tenderness, No mass Extremity Exam: normal inspection, normal range of motion, pelvis stable Skin Exam: normal color, warm, dry, No rash Results - Labs Lab/Micro Results: Lab Results-Last 24 Hours 07/08/20 07/08/20 07/08/20 Range/Units 09:37 09:45 09:45 WBC (4.0-10.5) K/mm3 RBC (4.1-5.6) M/mm3 Hgb (12.5-18.0) gm/dl Hct (42-50) % MCV (78-100) fl MCH (26-32) pg MCHC (32-36) g/dl RDW (11.5-14.0) % Plt Count (150-450) K/mm3 MPV (7.5-11.0) fl Gran % (36.0-66.0) % Eos # (Auto) (0-0.5) Absolute Lymphs (auto) (1.0-4.6) Absolute Monos (auto) (0.0-1.3) Lymphocytes % (24.0-44.0) % Monocytes % (0.0-12.0) % Eosinophils % (0.00-5.0) % Basophils % (0.0-0.4) % Absolute Granulocytes (1.4-6.9) Basophils # (0-0.4) Sodium (137-145) mmol/L Potassium (3.5-5.1) mmol/L Chloride (98-107) mmol/L Carbon Dioxide (22-30) mmol/L Anion Gap (5-15) MEQ/L BUN (9-20) mg/dL Creatinine (0.66-1.25) mg/dL Estimated GFR ML/MIN Glucose (74-106) mg/dL POC Glucometer 228 H (74 to 106) mg/dL Calcium (8.4-10.2) mg/dL Total Bilirubin (0.2-1.3) mg/dL AST (17-59) U/L ALT (0-50) U/L Alkaline Phosphatase (38-126) U/L Ammonia (9-30) umol/L Serum Total Protein (6.3-8.2) g/dL Albumin (3.5-5.0) g/dL Urine Color YELLOW (YELLOW) Urine Appearance SLIGHTLY CLOUDY (CLEAR) Urine pH 5.0 (5-6) Ur Specific [place] 1.023 (1.005-1.025) Urine Protein 30 (Negative) Urine Ketones NEGATIVE (NEGATIVE) Urine Blood NEGATIVE (0-5) Urban/ul Urine Nitrite NEGATIVE (NEGATIVE) Urine Bilirubin NEGATIVE (NEGATIVE) Urine Urobilinogen NEGATIVE (0-1) mg/dL Ur Leukocyte Esterase NEGATIVE (NEGATIVE) Urine WBC (Auto) 3-5 (0-5) /HPF Urine RBC (Auto) 16-25 (0-2) /HPF U Epithel Cells (Auto) NONE (FEW) /HPF Urine Bacteria (Auto) RARE (NEGATIVE) /HPF Urine Mucus (Auto) SLIGHT (NEGATIVE) /HPF Urine Culture Reflexed YES (NO) Urine Glucose NEGATIVE (NEGATIVE) mg/dL Salicylates (2-20) mg/dL Urine Opiates Level NEGATIVE (NEGATIVE) Ur Methadone NEGATIVE (NEGATIVE) Acetaminophen (10-30) ug/ml Urine Barbiturates NEGATIVE (NEGATIVE) Ur Phencyclidine (PCP) NEGATIVE (NEGATIVE) Urine Amphetamine NEGATIVE (NEGATIVE) U Benzodiazepine Level NEGATIVE (NEGATIVE) Mcmurray (0.60-1.20) mmol/L Urine Cocaine NEGATIVE (NEGATIVE) Urine Marijuana (THC) NEGATIVE (NEGATIVE) Ethyl Alcohol (0-10) mg/dL 07/08/20 07/08/20 07/08/20 Range/Units 10:10 10:10 10:10 WBC 8.3 (4.0-10.5) K/mm3 RBC 4.72 (4.1-5.6) M/mm3 Hgb 13.5 (12.5-18.0) gm/dl Hct 42.5 (42-50) % MCV 90.0 (78-100) fl MCH 28.6 (26-32) pg MCHC 31.8 L (32-36) g/dl RDW 14.4 H (11.5-14.0) % Plt Count 237 (150-450) K/mm3 MPV 11.0 (7.5-11.0) fl Gran % 77.6 H (36.0-66.0) % Eos # (Auto) 0.05 (0-0.5) Absolute Lymphs (auto) 1.12 (1.0-4.6) Absolute Monos (auto) 0.67 (0.0-1.3) Lymphocytes % 13.5 L (24.0-44.0) % Monocytes % 8.1 (0.0-12.0) % Eosinophils % 0.6 (0.00-5.0) % Basophils % 0.2 (0.0-0.4) % Absolute Granulocytes 6.41 (1.4-6.9) Basophils # 0.02 (0-0.4) Sodium 137 (137-145) mmol/L Potassium 4.8 (3.5-5.1) mmol/L Chloride 103 (98-107) mmol/L Carbon Dioxide 25 (22-30) mmol/L Anion Gap 14.1 (5-15) MEQ/L BUN 24 H (9-20) mg/dL Creatinine 1.41 H (0.66-1.25) mg/dL Estimated GFR 53.1 ML/MIN Glucose 205 H (74-106) mg/dL POC Glucometer (74 to 106) mg/dL Calcium 9.9 (8.4-10.2) mg/dL Total Bilirubin 0.60 (0.2-1.3) mg/dL AST 29 (17-59) U/L ALT 41 (0-50) U/L Alkaline Phosphatase 134 H (38-126) U/L Ammonia < 9 L (9-30) umol/L Serum Total Protein 7.3 (6.3-8.2) g/dL Albumin 4.2 (3.5-5.0) g/dL Urine Color (YELLOW) Urine Appearance (CLEAR) Urine pH (5-6) Ur Specific [place] (1.005-1.025) Urine Protein (Negative) Urine Ketones (NEGATIVE) Urine Blood (0-5) Urban/ul Urine Nitrite (NEGATIVE) Urine Bilirubin (NEGATIVE) Urine Urobilinogen (0-1) mg/dL Ur Leukocyte Esterase (NEGATIVE) Urine WBC (Auto) (0-5) /HPF Urine RBC (Auto) (0-2) /HPF U Epithel Cells (Auto) (FEW) /HPF Urine Bacteria (Auto) (NEGATIVE) /HPF Urine Mucus (Auto) (NEGATIVE) /HPF Urine Culture Reflexed (NO) Urine Glucose (NEGATIVE) mg/dL Salicylates < 1.0 L (2-20) mg/dL Urine Opiates Level (NEGATIVE) Ur Methadone (NEGATIVE) Acetaminophen < 10 L (10-30) ug/ml Urine Barbiturates (NEGATIVE) Ur Phencyclidine (PCP) (NEGATIVE) Urine Amphetamine (NEGATIVE) U Benzodiazepine Level (NEGATIVE) Mcmurray (0.60-1.20) mmol/L Urine Cocaine (NEGATIVE) Urine Marijuana (THC) (NEGATIVE) Ethyl Alcohol < 10 (0-10) mg/dL 07/08/20 07/08/20 07/09/20 Range/Units 22:11 Unknown 04:41 WBC 7.6 (4.0-10.5) K/mm3 RBC 4.36 (4.1-5.6) M/mm3 Hgb 12.6 (12.5-18.0) gm/dl Hct 39.9 L (42-50) % MCV 91.5 (78-100) fl MCH 28.9 (26-32) pg MCHC 31.6 L (32-36) g/dl RDW 14.7 H (11.5-14.0) % Plt Count 237 (150-450) K/mm3 MPV 11.3 H (7.5-11.0) fl Gran % 64.3 (36.0-66.0) % Eos # (Auto) 0.12 (0-0.5) Absolute Lymphs (auto) 1.61 (1.0-4.6) Absolute Monos (auto) 0.95 (0.0-1.3) Lymphocytes % 21.2 L (24.0-44.0) % Monocytes % 12.5 H (0.0-12.0) % Eosinophils % 1.6 (0.00-5.0) % Basophils % 0.4 (0.0-0.4) % Absolute Granulocytes 4.87 (1.4-6.9) Basophils # 0.03 (0-0.4) Sodium (137-145) mmol/L Potassium (3.5-5.1) mmol/L Chloride (98-107) mmol/L Carbon Dioxide (22-30) mmol/L Anion Gap (5-15) MEQ/L BUN (9-20) mg/dL Creatinine (0.66-1.25) mg/dL Estimated GFR ML/MIN Glucose (74-106) mg/dL POC Glucometer 127 H (74 to 106) mg/dL Calcium (8.4-10.2) mg/dL Total Bilirubin (0.2-1.3) mg/dL AST (17-59) U/L ALT (0-50) U/L Alkaline Phosphatase (38-126) U/L Ammonia (9-30) umol/L Serum Total Protein (6.3-8.2) g/dL Albumin (3.5-5.0) g/dL Urine Color (YELLOW) Urine Appearance (CLEAR) Urine pH (5-6) Ur Specific [place] (1.005-1.025) Urine Protein (Negative) Urine Ketones (NEGATIVE) Urine Blood (0-5) Urban/ul Urine Nitrite (NEGATIVE) Urine Bilirubin (NEGATIVE) Urine Urobilinogen (0-1) mg/dL Ur Leukocyte Esterase (NEGATIVE) Urine WBC (Auto) (0-5) /HPF Urine RBC (Auto) (0-2) /HPF U Epithel Cells (Auto) (FEW) /HPF Urine Bacteria (Auto) (NEGATIVE) /HPF Urine Mucus (Auto) (NEGATIVE) /HPF Urine Culture Reflexed (NO) Urine Glucose (NEGATIVE) mg/dL Salicylates (2-20) mg/dL Urine Opiates Level (NEGATIVE) Ur Methadone (NEGATIVE) Acetaminophen (10-30) ug/ml Urine Barbiturates (NEGATIVE) Ur Phencyclidine (PCP) (NEGATIVE) Urine Amphetamine (NEGATIVE) U Benzodiazepine Level (NEGATIVE) Mcmurray 0.4 L (0.60-1.20) mmol/L Urine Cocaine (NEGATIVE) Urine Marijuana (THC) (NEGATIVE) Ethyl Alcohol (0-10) mg/dL 07/09/20 07/09/20 Range/Units 04:41 07:17 WBC (4.0-10.5) K/mm3 RBC (4.1-5.6) M/mm3 Hgb (12.5-18.0) gm/dl Hct (42-50) % MCV (78-100) fl MCH (26-32) pg MCHC (32-36) g/dl RDW (11.5-14.0) % Plt Count (150-450) K/mm3 MPV (7.5-11.0) fl Gran % (36.0-66.0) % Eos # (Auto) (0-0.5) Absolute Lymphs (auto) (1.0-4.6) Absolute Monos (auto) (0.0-1.3) Lymphocytes % (24.0-44.0) % Monocytes % (0.0-12.0) % Eosinophils % (0.00-5.0) % Basophils % (0.0-0.4) % Absolute Granulocytes (1.4-6.9) Basophils # (0-0.4) Sodium 136 L (137-145) mmol/L Potassium 5.2 H (3.5-5.1) mmol/L Chloride 103 (98-107) mmol/L Carbon Dioxide 27 (22-30) mmol/L Anion Gap 11.9 (5-15) MEQ/L BUN 31 H (9-20) mg/dL Creatinine 1.52 H (0.66-1.25) mg/dL Estimated GFR 48.7 ML/MIN Glucose 113 H (74-106) mg/dL POC Glucometer 119 H (74 to 106) mg/dL Calcium 9.4 (8.4-10.2) mg/dL Total Bilirubin 0.90 (0.2-1.3) mg/dL AST 30 (17-59) U/L ALT 38 (0-50) U/L Alkaline Phosphatase 133 H (38-126) U/L Ammonia (9-30) umol/L Serum Total Protein 6.9 (6.3-8.2) g/dL Albumin 4.0 (3.5-5.0) g/dL Urine Color (YELLOW) Urine Appearance (CLEAR) Urine pH (5-6) Ur Specific [place] (1.005-1.025) Urine Protein (Negative) Urine Ketones (NEGATIVE) Urine Blood (0-5) Urban/ul Urine Nitrite (NEGATIVE) Urine Bilirubin (NEGATIVE) Urine Urobilinogen (0-1) mg/dL Ur Leukocyte Esterase (NEGATIVE) Urine WBC (Auto) (0-5) /HPF Urine RBC (Auto) (0-2) /HPF U Epithel Cells (Auto) (FEW) /HPF Urine Bacteria (Auto) (NEGATIVE) /HPF Urine Mucus (Auto) (NEGATIVE) /HPF Urine Culture Reflexed (NO) Urine Glucose (NEGATIVE) mg/dL Salicylates (2-20) mg/dL Urine Opiates Level (NEGATIVE) Ur Methadone (NEGATIVE) Acetaminophen (10-30) ug/ml Urine Barbiturates (NEGATIVE) Ur Phencyclidine (PCP) (NEGATIVE) Urine Amphetamine (NEGATIVE) U Benzodiazepine Level (NEGATIVE) Mcmurray (0.60-1.20) mmol/L Urine Cocaine (NEGATIVE) Urine Marijuana (THC) (NEGATIVE) Ethyl Alcohol (0-10) mg/dL Accuchecks Date 07/09/20 Date 07/08/20 Time 07:30 Time 22:11 - Radiology Impressions Radiology Exams & Impressions: Radiology Procedures Category Date Time Status HEAD WITHOUT CONTRAST [CT] Stat Exams 07/08/20 09:40 Completed Assessment/Plan (1) Confusion Current Visit: Yes Status: Acute Assessment & Plan: lab workup negative, normal ammonia level, no infection identified and nothing acute on head ct. ? relationship to recent med changes, will consult with [facility], hold lithium for now and continue duloxetine, symptoms are clearing and might be from holding lithium Code(s): R41.0 - DISORIENTATION, UNSPECIFIED (2) Type 2 diabetes mellitus Current Visit: Yes Status: Acute Assessment & Plan: stable (3) Seizure disorder Current Visit: Yes Status: Acute Assessment & Plan: currently stable, continue home meds. Code(s): G40.909 - EPILEPSY, UNSP, NOT INTRACTABLE, WITHOUT STATUS EPILEPTICUS
[2020-07-09] MEDS ORDERED: Ventolin Hfa MDI IH PRN (10:26)
[2020-07-09] MEDS ORDERED: VENTOLIN COMMON CANISTER IH PRN (10:31)
[2020-07-09] MEDS: ZOCOR 20MG PO SCH (10:42)
[2020-07-09] MEDS: Glucophage XR 500 MG PO SCH ×2 (10:42→16:01)
[2020-07-09] MEDS: Protonix 40MG Tablet PO SCH (10:42)
[2020-07-09] MEDS: Cymbalta 30 MG Capsule PO SCH (10:42)
[2020-07-09] MEDS: Zestril 10 MG PO SCH (10:42)
[2020-07-09] MEDS ORDERED: MEDICATION INTERVENTION PO SCH (10:45)
[2020-07-09] MEDS ORDERED: MEDICATION INTERVENTION MC SCH (10:45)
[2020-07-09] MEDS: Advair Hfa 230/21 Mcg COMMON CANISTER IH SCH ×2 (11:30→19:09)
[2020-07-09] MEDS: Sodium Chloride 0.9% 1000 ML 1,000 ML IV SCH ×2 (13:05→19:04)
[2020-07-09] MEDS ORDERED: LACOSAMIDE 200 MG PO SCH (15:00)
[2020-07-09] MEDS: PATIENT OWN MEDICATION PO SCH ×3 (15:55→21:42)
[2020-07-09 20:25] LABS: Folate (Folic Acid) 10.1 ng/mL (2.76 - >20)
[2020-07-09] MEDS: REMERON 30 MG PO SCH (21:42)
[2020-07-09] MEDS ORDERED: NON-FORMULARY ITEM (Metformin Hcl [Metformin Er Osmotic] 500 MG) PO SCH (22:00)
[2020-07-09] MEDS ORDERED: BRIVARACETAM PO SCH (22:00)
[2020-07-10 06:01] LABS: Absolute Neutrophil Ct (ANC) 5.81 (1.4-6.9); BASOPHIL % 0.2 % (0.0-0.4); Basophil (Absolute #) 0.02 (0-0.4); Eosinophil % 1.9 % (0.00-5.0); Eosinophil (Absolute #) 0.16 (0-0.5); Hematocrit 40.1 % (42-50); Hemoglobin 12.5 gm/dl (12.5-18.0); Lymphocyte (Absolute #) 1.51 (1.0-4.6); Lymphocytes % 17.7 % (24.0-44.0); Mean Corpuscular Hemoglobin 28.7 pg (26-32); Mean Corpuscular Hgb Concent. 31.2 g/dl (32-36); Mean Platelet Volume 11.1 fl (7.5-11.0); Monocyte (Absolute #) 1.01 (0.0-1.3); Monocytes % 11.9 % (0.0-12.0); Neutrophil % 68.3 % (36.0-66.0); Platelet Count 224 K/mm3 (150-450); Red Blood Count 4.36 M/mm3 (4.1-5.6); Red Cell Distribution Width 14.8 % (11.5-14.0); White Blood Count 8.5 K/mm3 (4.0-10.5)
[2020-07-10 06:06] LABS: ANION GAP 9.9 MEQ/L (5-15); Calcium 8.8 mg/dL (8.4-10.2); Creatinine 1 1.59 mg/dL (0.66-1.25); EST GLOMERULAR FILTRATION RATE 46.2 ML/MIN; Potassium 4.6 mmol/L (3.5-5.1)
[2020-07-10] MEDS: Advair Hfa 230/21 Mcg COMMON CANISTER IH SCH (06:47)
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
[2020-07-10] MEDS: Cymbalta 30 MG Capsule PO SCH (08:28)
[2020-07-10] MEDS: Lyrica 50MG PO SCH ×3 (08:28→22:30)
[2020-07-10] MEDS: Glucophage XR 500 MG PO SCH ×2 (08:28→17:02)
[2020-07-10] MEDS: PATIENT OWN MEDICATION PO SCH ×5 (08:29→22:30)
[2020-07-10] MEDS: ZOCOR 20MG PO SCH (08:29)
[2020-07-10] MEDS: Zestril 10 MG PO SCH (08:29)
[2020-07-10] MEDS: Protonix 40MG Tablet PO SCH (08:29)
[2020-07-10] MEDS ORDERED: NON-FORMULARY ITEM (Budesonide/Formoterol Fumarate [Symbicort 160-4.5 Mcg Inhaler] 1 PUFF) IH SCH (10:00)
[2020-07-10] MEDS ORDERED: LIPITOR 40MG PO SCH (10:00)
[2020-07-10] MEDS ORDERED: DULOXETINE HCL PO SCH (10:00)
[2020-07-10 12:08] VITALS: BP 120/56; PULSE 71; O2SAT 100
[2020-07-10] MEDS: Sodium Chloride 0.9% 1000 ML 1,000 ML IV SCH (16:01)
[2020-07-10] MEDS: REMERON 30 MG PO SCH (22:31)
[2020-07-11] MEDS: Advair Hfa 230/21 Mcg COMMON CANISTER IH SCH (06:46)
[2020-07-11] MEDS: Glucophage XR 500 MG PO SCH (08:16)
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
[2020-07-11] MEDS: Lyrica 50MG PO SCH ×2 (10:05→15:19)
[2020-07-11] MEDS: PATIENT OWN MEDICATION PO SCH ×3 (10:05→15:19)
[2020-07-11] MEDS: Cymbalta 30 MG Capsule PO SCH (10:05)
[2020-07-11] MEDS: Zestril 10 MG PO SCH (10:05)
[2020-07-11] MEDS: Protonix 40MG Tablet PO SCH (10:05)
[2020-07-11] MEDS: ZOCOR 20MG PO SCH (10:05)
[2020-07-11] MEDS: Sodium Chloride 0.9% 1000 ML 1,000 ML IV SCH (11:58)
--- NOTE | 2020-07-11 13:12 | PCM.DS ---
Discharge Summary Date of Admission: 07/10/20 08:23 Admitting Physician: FABY DIAZ Consults: Consults on Case 07/10/20 08:27 Psychiatric Consult STAT Primary Care Provider: CITLALLI GARCIA Allergies Allergies adhesive Adverse Reaction (Unknown, Verified 07/08/20 10:10) adhesive tape, swell and itches Hospital Summary - Hospital Course Hospital Course: Mr Sims was admitted after recently starting lithium as adjunctive treatment for depression and suicidal ideation, has been hospitalized with the [facility] previously with suicidal thoughts. he has become extremely paranoid during his stay, untrusting of staff, claims pink smoke is being blown in his room through ventilation system and demanding to speak to the [facility] office. he will not comply with meds, has a history of seizures but no seizure activity during his stay. no orgranic cause of his paranoia, confusion or hallucinations has been found medically. he will be transferred to psych facility with ED due to being unsafe to care for himself and noncompliance with treatment. - Vitals & Intake/Output Vital Signs: Vital Signs Temperature 97.7 F 07/10/20 12:00 Pulse Rate 71 07/10/20 12:00 Respiratory Rate 20 07/10/20 12:00 Blood Pressure 120/56 07/10/20 12:00 O2 Sat by Pulse Oximetry 100 07/10/20 12:00 Intake & Output: Intake & Output 07/09/20 07/10/20 07/11/20 07/12/20 11:59 11:59 11:59 11:59 Intake Total 894 1323 Output Total 097 509 6438 Balance 494 873 -1050 Weight 155.9 kg 158.3 kg 159.7 kg - Lab Result Diagrams: 07/10/20 04:40 07/10/20 04:40 Lab Results-Last 24 Hrs: Lab Results-Last 24 Hours 07/10/20 Range/Units 16:57 POC Glucometer 111 H (74 to 106) mg/dL Micro Results-Entire Visit: Microbiology 07/08/20 09:45 Urine Culture - Final Urine, Catheterized NO GROWTH Accuchecks Date 07/11/20 Date 07/10/20 Time 16:57 - Procedures and Test Procedures and Tests throughout Hospitalization: Therapy Orders & Screens 07/09/20 11:29 Respiratory Therapy Assessment DAILY Comment: Diagnosis: confusion Discharge Exam General Appearance: no apparent distress, obese Neurologic Exam: alert, confusion, agitation Respiratory Exam: normal breath sounds, lungs clear, No respiratory distress Cardiovascular Exam: regular rate/rhythm, normal heart sounds Gastrointestinal/Abdomen Exam: soft, No tenderness, No mass Extremity Exam: normal inspection, normal range of motion Skin Exam: normal color, warm, dry Final Diagnosis/Problem List - Final Discharge Diagnosis/Problem (1) Psychosis Current Visit: Yes Status: Acute Assessment & Plan: patient has been accepted to [facility] in [place], problems are purely psychiatric and medically he is cleared for transfer. he is clearly paranoid and unsafe to care for himself and due to psychosis ED will be initiated. (2) Confusion Current Visit: Yes Status: Acute Code(s): R41.0 - DISORIENTATION, UNS PECIFIED (3) Type 2 diabetes mellitus Current Visit: Yes Status: Acute (4) Seizure disorder Current Visit: Yes Status: Acute Code(s): G40.909 - EPILEPSY, UNSP, NOT INTRACTABLE, WITHOUT STATUS EPILEPTICUS - Discharge Disposition: DC TO OTHER HOSP Condition: Stable Prescriptions: No Action Lacosamide [Vimpat] 200 mg PO TID PANTOPRAZOLE 40 mg Tablet [Protonix 40MG Tablet] 40 mg PO DAILY Ascorbate Calcium [Vitamin C] 500 mg PO TID Metformin HCl [Metformin ER Osmotic] 500 mg PO BID Echinacea 167 mg PO BID Atorvastatin Calcium [Lipitor] 40 mg PO DAILY Calcium Carb & Citrate/Vit D3 [Calcium + Vitamin D3 Caplet] 1 each PO BID Vitamin E 400 unit PO DAILY Cyanocobalamin (Vitamin B-12) [Vitamin B-12] 1,000 mcg SL DAILY Pregabalin 50 mg [Lyrica 50MG] 50 mg PO TID Albuterol Sulfate [Proair Hfa] 2 puff IH UD PRN PRN Reason: Shortness Of Breath/Wheezing Mirtazapine 30 mg [Remeron 30 mg] 1 tab PO HS Meloxicam 1 tab PO DAILY [place] Carbonate 1 tab PO DAILY Lisinopril 10 mg [Zestril 10 MG] 1 tab PO DAILY Iron 1 tab PO DAILY Duloxetine HCl [Cymbalta] 1 tab PO DAILY Budesonide/Formoterol Fumarate [Symbicort 160-4.5 Mcg Inhaler] 1 puff IH DAILY Brivaracetam [Briviact] 1 tab PO BID Follow up with: CITLALLI GARCIA MD [Primary Care Provider] -
[2020-07-11] MEDS ORDERED: Ativan 2 MG/1 ML VIAL IV PRN (15:48)
== END 2020-07-11 17:20 | DRG 885 ==
LOC: ED 09:11 → MED SURG 14:53 → OBSVTOIN 07-10 08:23
PROVIDERS: ADMIT Family Medicine; ATTEND Family Medicine
DX: F23 Brief psychotic disorder (principal); R41.0 Disorientation, unspecified; G40.909 Epilepsy, unspecified, not intractable, without status epilepticus; Z79.899 Other long term (current) drug therapy; E11.9 Type 2 diabetes mellitus without complications; J44.9 Chronic obstructive pulmonary disease, unspecified; E78.00 Pure hypercholesterolemia, unspecified
CPT/HCPCS: 36000; 36415; 70450; 80048; 80053; 80178; 80307; 81001; 82140; 82607; 82746; 82947; 83036; 84443; 85025; 87086; 93005; 93041; 94640; 94760; 99285; G0378; J2060; P9612; A9270-GY; G0480

== ENCOUNTER 2020-07-28 22:38 | Observation (INO) | payer MEDICARE ==
[2020-07-28 23:22] LABS: Absolute Neutrophil Ct (ANC) 3.56 (1.4-6.9); BASOPHIL % 0.2 % (0.0-0.4); Basophil (Absolute #) 0.01 (0-0.4); Eosinophil % 3.5 % (0.00-5.0); Eosinophil (Absolute #) 0.18 (0-0.5); Hemoglobin 13.6 gm/dl (12.5-18.0); Lymphocyte (Absolute #) 0.78 (1.0-4.6); Lymphocytes % 15.4 % (24.0-44.0); Mean Cell Volume 89.9 fl (78-100); Mean Corpuscular Hemoglobin 29.1 pg (26-32); Mean Corpuscular Hgb Concent. 32.4 g/dl (32-36); Mean Platelet Volume 12.4 fl (7.5-11.0); Monocyte (Absolute #) 0.55 (0.0-1.3); Monocytes % 10.8 % (0.0-12.0); Neutrophil % 70.1 % (36.0-66.0); Platelet Count 200 K/mm3 (150-450); Red Blood Count 4.67 M/mm3 (4.1-5.6); Red Cell Distribution Width 14.2 % (11.5-14.0); White Blood Count 5.1 K/mm3 (4.0-10.5)
[2020-07-28 23:25] LABS: Appearance CLEAR (CLEAR); Bilirubin NEGATIVE (NEGATIVE); Blood NEGATIVE Ery/ul (0-5); Glucose NEGATIVE (NEGATIVE); Ketones NEGATIVE (NEGATIVE); Leukocyte Esterase NEGATIVE (NEGATIVE); Mucus SLIGHT /HPF (NEGATIVE); Nitrite NEGATIVE (NEGATIVE); Protein,Urine Dip NEGATIVE (Negative); Specific Gravity 1.012 (1.005-1.025); Urobilinogen 2 mg/dL (0-1)
[2020-07-28 23:37] LABS: ACETAMINOPHEN < 10 ug/ml (10-30); ALKALINE PHOSPHATASE 161 U/L (38-126); ANION GAP 12.7 MEQ/L (5-15); BLOOD UREA NITROGEN 26 mg/dL (9-20); CHLORIDE 105 mmol/L (98-107); Calcium 9.2 mg/dL (8.4-10.2); Carbon Dioxide 21 mmol/L (22-30); Creatinine 1 1.52 mg/dL (0.66-1.25); EST GLOMERULAR FILTRATION RATE 48.7 ML/MIN; ETHYL ALCOHOL < 10 mg/dL (0-10); Glucose 151 mg/dL (74-106); Potassium 4.3 mmol/L (3.5-5.1); SALICYLATE < 1.0 mg/dL (2-20); SGOT/AST 24 U/L (17-59); SGPT/ALT 15 U/L (0-50); SODIUM 134 mmol/L (137-145); Total Protein 7.2 g/dL (6.3-8.2)
[2020-07-28 23:39] LABS: Amphetamine,Urine NEGATIVE (NEGATIVE); Barbiturate,Urine NEGATIVE (NEGATIVE); Benzodiazepine,Urine NEGATIVE (NEGATIVE); Cocaine,Urine NEGATIVE (NEGATIVE); Methadone,Urine NEGATIVE (NEGATIVE); Opiate,Urine NEGATIVE (NEGATIVE); PCP,Urine NEGATIVE (NEGATIVE); THC,Urine NEGATIVE (NEGATIVE)
[2020-07-29] MEDS ORDERED: Sodium Chloride 0.9% 1000 ML 1,000 ML IV SCH (00:30)
[2020-07-29] MEDS ORDERED: Sodium Chloride 0.9% 1000 ML 1,000 ML ONE (00:34)
--- NOTE | 2020-07-29 00:38 | ERPHSYRPT ---
- History of Present Illness Time Seen by Provider: 07/28/20 22:50 Source: patient Exam Limitations: no limitations Patient Subjective Stated Complaint: per ems, pt was dc'd from [facility] in [place] today. was stating that pt was manic and very uncooperative at home. Triage Nursing Assessment: pt resting in bed with eyes closed. will answer yes or no to questions but otherwise not speaking at this time. pt restless in bed, waving arm and moving legs frequently. pt does not folllow commands at this time. skin pale, warm and dry. respirations nonlabored with lungs cta. pt sinus rhythm on monitor. 2+ edema noted to bilat lower ext. pt unable to give histroy at thist sherice. history obtained from previous chart and dc info from [facility]. Physician History: Patient is a 70-year-old male presents to our ED for evaluation of aggressive behavior. Patient was discharged from [facility] in [place]. states upon arrival he was acting like a "maniac". Patient was uncooperative at home. Mother became concerned and called 911. However upon arrival not combative. He was withdrawn. He was answering simple questions. Patient would not make eye contact. He appeared somewhat restless at times. However no focal or lateralizing neurologic deficits observed. Timing/Duration: today Severity: moderate Modifying Factors: Improves With: nothing Associated Symptoms: denies symptoms Allergies/Adverse Reactions: adhesive Adverse Reaction (Unknown, Verified 07/08/20 10:10) adhesive tape, swell and itches Home Medications: Ascorbate Calcium [Vitamin C] 500 mg PO TID 10/17/13 [History] Atorvastatin Calcium [Lipitor] 40 mg PO DAILY 10/17/13 [History] Calcium Carb & Citrate/Vit D3 [Calcium + Vitamin D3 Caplet] 1 each PO BID 10/17/13 [History] Echinacea 167 mg PO BID 10/17/13 [History] Lacosamide [Vimpat] 200 mg PO TID 10/17/13 [History] Metformin HCl [Metformin ER Osmotic] 500 mg PO BID 10/17/13 [History] PANTOPRAZOLE 40 mg Tablet [Protonix 40MG Tablet] 40 mg PO DAILY 10/17/13 [History] Vitamin E 400 unit PO DAILY 10/17/13 [History] Albuterol Sulfate [Proair Hfa] 2 puff IH UD PRN 03/25/15 [History] Cyanocobalamin (Vitamin B-12) [Vitamin B-12] 1,000 mcg SL DAILY 03/25/15 [History] Pregabalin 50 mg [Lyrica 50MG] 50 mg PO TID 03/25/15 [History] Brivaracetam [Briviact] 1 tab PO BID 07/08/20 [History] Budesonide/Formoterol Fumarate [Symbicort 160-4.5 Mcg Inhaler] 1 puff IH DAILY 07/08/20 [History] Duloxetine HCl [Cymbalta] 1 tab PO DAILY 07/08/20 [History] Iron 1 tab PO DAILY 07/08/20 [History] Lisinopril 10 mg [Zestril 10 MG] 1 tab PO DAILY 07/08/20 [History] [place] Carbonate 1 tab PO DAILY 07/08/20 [History] Meloxicam 1 tab PO DAILY 07/08/20 [History] Mirtazapine 30 mg [Remeron 30 mg] 1 tab PO HS 07/08/20 [History] Hx Tetanus, Diphtheria Vaccination/Date Given: No Hx Influenza Vaccination/Date Given: No Hx Pneumococcal Vaccination/Date Given: No Travel Risk - International Travel Have you traveled outside of the country in past 3 weeks: No - Review of Systems Respiratory: Dyspnea All Other Systems: Unable due to condition - Past Medical History Pertinent Past Medical History: Yes Neurological History: Seizures ENT History: No Pertinent History Cardiac History: High Cholesterol, Other Respiratory History: COPD Endocrine Medical History: Diabetes Type II Musculoskeletal History: Arthritis, Osteoporosis, Other GI Medical History: GERD, Ulcer History: No Pertinent History Psycho-Social History: Depression Male Reproductive Disorders: No Pertinent History Other Medical History: Disc compressions, " Vascular nerve stimulator" - Past Surgical History Past Surgical History: Yes Neuro Surgical History: No Pertinent History Cardiac: Cardiac Catheterization Respiratory: No Pertinent History Gastrointestinal: Cholecystectomy, Other Genitourinary: No Pertinent History Musculoskeletal: No Pertinent History Male Surgical History: No Pertinent History, Testicular Surgery Other Surgical History: Two cysts removed- one from big toe and one from testical, " Vascular nerve stimulator" - Social History Smoking Status: Unknown if ever smoked How long have you smoked: 6 months Exposure to second hand smoke: Yes Drug Use: none Patient Lives Alone: Yes - Nursing Vital Signs Nursing Vital Signs: Initial Vital Signs Temperature 97.2 F 07/28/20 22:42 Pulse Rate 70 07/28/20 22:42 Respiratory Rate 20 07/28/20 22:42 Blood Pressure 138/68 07/28/20 22:42 O2 Sat by Pulse Oximetry 95 07/28/20 22:42 Pain Scale Pain Intensity 0 - Physical Exam General Appearance: no apparent distress, alert Eye Exam: PERRL/EOMI, eyes nml inspection Ears, Nose, Throat Exam: normal ENT inspection, TMs normal, pharynx normal, moist mucous membranes Neck Exam: normal inspection, non-tender, supple, full range of motion Respiratory Exam: normal breath sounds, lungs clear, No respiratory distress Cardiovascular Exam: regular rate/rhythm, normal heart sounds, normal peripheral pulses Gastrointestinal/Abdomen Exam: soft, normal bowel sounds, No tenderness, No mass Back Exam: normal inspection, normal range of motion, No CVA tenderness, No vertebral tenderness Extremity Exam: normal inspection, swelling (Plus pitting edema bilaterally), No calf tenderness, No dung's sign Neurologic Exam: alert (Patient laying in bed with his eyes closed. Patient uncooperative. Patient responds to simple commands. There is no obvious neurologic deficit. No focal or lateralizing symptoms.), pulp mixer II-XII nml as tested, No motor deficits, No motor weakness, No facial droop Skin Exam: normal color, warm, dry, No rash Lymphatic Exam: No adenopathy SpO2 Interpretation: normal SpO2: 99 O2 Delivery: Room Air - Course Nursing assessment & vital signs reviewed: Yes EKG Interpreted by Me: RATE (68), Sinus Rhythm, NORMAL AXIS, NORMAL INTERVALS Ordered Tests: Active Orders 24 hr Category Date Time Status Certified First Assistant STAT Care 07/28/20 22:41 Active IV Insertion STAT Care 07/28/20 22:40 Active ACETAMINOPHEN Stat Lab 07/28/20 23:22 Completed CBC W DIFF Stat Lab 07/28/20 23:22 Completed CMP Stat Lab 07/28/20 23:22 Completed ETHYL ALCOHOL Stat Lab 07/28/20 23:22 Completed SALICYLATE Stat Lab 07/28/20 23:22 Completed TROPONIN Q3H Lab 07/29/20 00:00 Completed TROPONIN Q3H Lab 07/29/20 03:45 Ordered TROPONIN Q3H Lab 07/29/20 06:45 Ordered TROPONIN Q3H Lab 07/29/20 09:45 Ordered TROPONIN Q3H Lab 07/29/20 12:45 Ordered UA W/RFX UR CULTURE Stat Lab 07/28/20 23:15 Completed Urine Triage Profile Stat Lab 07/28/20 23:15 Completed Transfer Order Routine Transfer 07/29/20 Ordered Medication Summary Generic Name Dose Route Start Last Admin Trade Name Arq PRN Reason Stop Dose Admin Sodium Chloride 1,000 mls @ 100 mls/hr 07/29/20 00:30 07/29/20 00:36 Sodium Chloride 0.9% 1000 Ml IV 08/28/20 00:29 100 mls/hr .Q10H JAYLA Administration Lab/Rad Data: Laboratory Result Diagrams 07/28/20 23:22 07/28/20 23:22 Laboratory Results 07/29/20 07/28/20 07/28/20 Range/Units 00:00 23:22 23:22 WBC 5.1 (4.0-10.5) K/mm3 RBC 4.67 (4.1-5.6) M/mm3 Hgb 13.6 (12.5-18.0) gm/dl Hct 42.0 (42-50) % MCV 89.9 (78-100) fl MCH 29.1 (26-32) pg MCHC 32.4 (32-36) g/dl RDW 14.2 H (11.5-14.0) % Plt Count 200 (150-450) K/mm3 MPV 12.4 H (7.5-11.0) fl Gran % 70.1 H (36.0-66.0) % Eos # (Auto) 0.18 (0-0.5) Absolute Lymphs (auto) 0.78 L (1.0-4.6) Absolute Monos (auto) 0.55 (0.0-1.3) Lymphocytes % 15.4 L (24.0-44.0) % Monocytes % 10.8 (0.0-12.0) % Eosinophils % 3.5 (0.00-5.0) % Basophils % 0.2 (0.0-0.4) % Absolute Granulocytes 3.56 (1.4-6.9) Basophils # 0.01 (0-0.4) Sodium 134 L (137-145) mmol/L Potassium 4.3 (3.5-5.1) mmol/L Chloride 105 (98-107) mmol/L Carbon Dioxide 21 L (22-30) mmol/L Anion Gap 12.7 (5-15) MEQ/L BUN 26 H (9-20) mg/dL Creatinine 1.52 H (0.66-1.25) mg/dL Estimated GFR 48.7 ML/MIN Glucose 151 H (74-106) mg/dL Calcium 9.2 (8.4-10.2) mg/dL Total Bilirubin 1.00 (0.2-1.3) mg/dL AST 24 (17-59) U/L ALT 15 (0-50) U/L Alkaline Phosphatase 161 H (38-126) U/L Troponin I < 0.012 (0.000-0.034) ng/mL Serum Total Protein 7.2 (6.3-8.2) g/dL Albumin 4.0 (3.5-5.0) g/dL Urine Color (YELLOW) Urine Appearance (CLEAR) Urine pH (5-6) Ur Specific [place] (1.005-1.025) Urine Protein (Negative) Urine Ketones (NEGATIVE) Urine Blood (0-5) Urban/ul Urine Nitrite (NEGATIVE) Urine Bilirubin (NEGATIVE) Urine Urobilinogen (0-1) mg/dL Ur Leukocyte Esterase (NEGATIVE) Urine WBC (Auto) (0-5) /HPF Urine RBC (Auto) (0-2) /HPF U Epithel Cells (Auto) (FEW) /HPF Urine Bacteria (Auto) (NEGATIVE) /HPF Urine Mucus (Auto) (NEGATIVE) /HPF Urine Culture Reflexed (NO) Urine Glucose (NEGATIVE) mg/dL Salicylates < 1.0 L (2-20) mg/dL Urine Opiates Level (NEGATIVE) Ur Methadone (NEGATIVE) Acetaminophen < 10 L (10-30) ug/ml Urine Barbiturates (NEGATIVE) Ur Phencyclidine (PCP) (NEGATIVE) Urine Amphetamine (NEGATIVE) U Benzodiazepine Level (NEGATIVE) Urine Cocaine (NEGATIVE) Urine Marijuana (THC) (NEGATIVE) Ethyl Alcohol < 10 (0-10) mg/dL 07/28/20 07/28/20 Range/Units 23:15 23:15 WBC (4.0-10.5) K/mm3 RBC (4.1-5.6) M/mm3 Hgb (12.5-18.0) gm/dl Hct (42-50) % MCV (78-100) fl MCH (26-32) pg MCHC (32-36) g/dl RDW (11.5-14.0) % Plt Count (150-450) K/mm3 MPV (7.5-11.0) fl Gran % (36.0-66.0) % Eos # (Auto) (0-0.5) Absolute Lymphs (auto) (1.0-4.6) Absolute Monos (auto) (0.0-1.3) Lymphocytes % (24.0-44.0) % Monocytes % (0.0-12.0) % Eosinophils % (0.00-5.0) % Basophils % (0.0-0.4) % Absolute Granulocytes (1.4-6.9) Basophils # (0-0.4) Sodium (137-145) mmol/L Potassium (3.5-5.1) mmol/L Chloride (98-107) mmol/L Carbon Dioxide (22-30) mmol/L Anion Gap (5-15) MEQ/L BUN (9-20) mg/dL Creatinine (0.66-1.25) mg/dL Estimated GFR ML/MIN Glucose (74-106) mg/dL Calcium (8.4-10.2) mg/dL Total Bilirubin (0.2-1.3) mg/dL AST (17-59) U/L ALT (0-50) U/L Alkaline Phosphatase (38-126) U/L Troponin I (0.000-0.034) ng/mL Serum Total Protein (6.3-8.2) g/dL Albumin (3.5-5.0) g/dL Urine Color YELLOW (YELLOW) Urine Appearance CLEAR (CLEAR) Urine pH 5.0 (5-6) Ur Specific [place] 1.012 (1.005-1.025) Urine Protein NEGATIVE (Negative) Urine Ketones NEGATIVE (NEGATIVE) Urine Blood NEGATIVE (0-5) Urban/ul Urine Nitrite NEGATIVE (NEGATIVE) Urine Bilirubin NEGATIVE (NEGATIVE) Urine Urobilinogen 2 (0-1) mg/dL Ur Leukocyte Esterase NEGATIVE (NEGATIVE) Urine WBC (Auto) NONE (0-5) /HPF Urine RBC (Auto) NONE (0-2) /HPF U Epithel Cells (Auto) NONE (FEW) /HPF Urine Bacteria (Auto) NONE (NEGATIVE) /HPF Urine Mucus (Auto) SLIGHT (NEGATIVE) /HPF Urine Culture Reflexed NO (NO) Urine Glucose NEGATIVE (NEGATIVE) mg/dL Salicylates (2-20) mg/dL Urine Opiates Level NEGATIVE (NEGATIVE) Ur Methadone NEGATIVE (NEGATIVE) Acetaminophen (10-30) ug/ml Urine Barbiturates NEGATIVE (NEGATIVE) Ur Phencyclidine (PCP) NEGATIVE (NEGATIVE) Urine Amphetamine NEGATIVE (NEGATIVE) U Benzodiazepine Level NEGATIVE (NEGATIVE) Urine Cocaine NEGATIVE (NEGATIVE) Urine Marijuana (THC) NEGATIVE (NEGATIVE) Ethyl Alcohol (0-10) mg/dL - Progress Progress: improved Progress Note: 07/29/20 00:45 Upon arrival patient was not cooperative. However over time patient settled d own became cooperative appropriately responsive conversant and in no acute distress. Patient has a history of seizures. He was not seizing upon arrival however the question arises as to whether or not patient was postictal upon his arrival to our ED. Patient denies pain. No chest pain or shortness of breath. No nausea or vomiting. It was observed the patient's renal function has worsened over the past month. There is question as to whether this may be contributing to patient's acute change in mental status. We will admit patient for further evaluation and treatment of acute renal injury. Case discussed with Dr. Garcia who accepts admission to observation. The hospital for further ev aluation and treatment. 07/29/20 01:44 Will see patient in: hospital (observation) Counseled pt/family regarding: lab results, diagnosis - Departure Departure Disposition: Observation Clinical Impression: Acute renal injury, Aggressive behavior, Dehydration Condition: Stable Critical Care Time: No Referrals: CITLALLI GARCIA MD [Primary Care Provider] -
[2020-07-29] MEDS: Sodium Chloride 0.9% 1000 ML 1,000 ML IV SCH ×3 (03:19→23:15)
[2020-07-29 05:55] LABS: Absolute Neutrophil Ct (ANC) 4.04 (1.4-6.9); BASOPHIL % 0.2 % (0.0-0.4); Basophil (Absolute #) 0.01 (0-0.4); Eosinophil % 3.2 % (0.00-5.0); Eosinophil (Absolute #) 0.19 (0-0.5); Hemoglobin 12.5 gm/dl (12.5-18.0); Lymphocyte (Absolute #) 0.94 (1.0-4.6); Lymphocytes % 15.6 % (24.0-44.0); Mean Cell Volume 91.7 fl (78-100); Mean Corpuscular Hemoglobin 28.7 pg (26-32); Mean Corpuscular Hgb Concent. 31.3 g/dl (32-36); Mean Platelet Volume 12.7 fl (7.5-11.0); Monocyte (Absolute #) 0.83 (0.0-1.3); Monocytes % 13.8 % (0.0-12.0); Neutrophil % 67.2 % (36.0-66.0); Platelet Count 196 K/mm3 (150-450); Red Blood Count 4.36 M/mm3 (4.1-5.6); Red Cell Distribution Width 14.2 % (11.5-14.0)
[2020-07-29 06:00] LABS: ANION GAP 10.2 MEQ/L (5-15); Creatinine 1 1.39 mg/dL (0.66-1.25); Potassium 4.1 mmol/L (3.5-5.1)
--- NOTE | 2020-07-29 10:31 | PCM.HP ---
History of Present Illness - Chief Complaint Chief Complaint: ACUTE RENAL INJURY, DEHYDRATION, AGGRESSIVE BEHAVIOR History of Present Illness: Mr.DUNIGAN GENAO is a 70 year old male who was recently admitted to a geriatric psychiatry facility in [place], he initially was at [facility] and was very paranoid and having hallucinations, he apparently was home for a very brief period and became aggressive, he is unable to relay much information about what happened at home. He is alert, conversant and oriented to person, place and time today. He is talking about birds in the ducts of his apartment, he thinks his told him he had a seizure but he is unable to remember much of what happened yesterday or during his last hospital stay, he has a longstanding history of seizures with VNS stimulator and home meds of vimpat and briviact which are unchanged. - Review of Systems Constitutional: No Fever, No Chills Respiratory: No Cough, No Short Of Breath Cardiac: No Chest Pain, No Edema, No Syncope Abdominal/Gastrointestinal: No Abdominal Pain, No Nausea, No Vomiting, No Diarrhea Genitourinary Symptoms: No Dysuria Neurological: Seizure, No Dizziness, No Focal Weakness, No Sensory Changes, No Speech Changes All Other Systems: Reviewed and Negative Medications & Allergies Home Medications: Home Medication List PANTOPRAZOLE 40 mg Tablet [Protonix 40MG Tablet] 40 mg PO DAILY 10/17/13 [History Confirmed 07/29/20] Vitamin E 400 unit PO DAILY 10/17/13 [History Confirmed 07/29/20] Albuterol Sulfate [Proair Hfa] 2 puff IH UD PRN 03/25/15 [History Confirmed 07/29/20] Pregabalin 50 mg [Lyrica 50MG] 50 mg PO TID 03/25/15 [History Confirmed 07/29/20] Brivaracetam [Briviact] 1 tab PO BID 07/08/20 [History Confirmed 07/29/20] Atorvastatin Calcium [Lipitor 20MG Tablet] 20 mg PO HS 07/29/20 [History Confirmed 07/29/20] Clonidine HCl 0.1 mg [Catapres 0.1 MG] 0.1 mg PO DAILY 07/29/20 [History Confirmed 07/29/20] Cyanocobalamin (Vitamin B-12) [B-12] 1,000 mcg PO DAILY 07/29/20 [History Confirmed 07/29/20] Duloxetine HCl 30 mg [Cymbalta 30 MG Capsule] 90 mg PO DAILY 07/29/20 [History Confirmed 07/29/20] Ibuprofen [IBUPROFEN 400 MG TABLET] 2 tablet PO Q8H PRN PRN 07/29/20 [History Confirmed 07/29/20] Lacosamide [Vimpat] 200 mg PO TID 07/29/20 [History Confirmed 07/29/20] Losartan Potassium [Cozaar] 25 mg PO BID 07/29/20 [History Confirmed 07/29/20] Mirtazapine [Remeron] 7.5 mg PO HS 07/29/20 [History Confirmed 07/29/20] Olanzapine Odt 5 mg [Zyprexa Zydis 5 MG] 5 mg PO DAILY 07/29/20 [History Confirmed 07/29/20] Olanzapine Odt 5 mg [Zyprexa Zydis 5 MG] 7.5 mg PO HS 07/29/20 [History Confirmed 07/29/20] Allergies/Adverse Reactions: Allergies Allergy/AdvReac Type Severity Reaction Status Date / Time adhesive AdvReac Unknown Verified 07/29/20 03:17 - Past Medical History Past Medical History: Yes Neurological History: Seizures ENT History: No Pertinent History Cardiac History: High Cholesterol, Other Respiratory History: COPD Endocrine Medical History: Diabetes Type II Musculoskelatal History: Arthritis, Osteoporosis, Other GI Medical History: GERD, Ulcer History: No Pertinent History Pyscho-Social History: Depression Male Reproductive Disorders: No Pertinent History Comment: Disc compressions, " Vascular nerve stimulator" - Past Surgical History Past Surgical History: Yes Neuro Surgical History: No Pertinent History Cardiac History: Cardiac Catheterization Respiratory Surgery: No Pertinent History GI Surgical History: Cholecystectomy, Other Genitourinary Surgical Hx: No Pertinent History Musculskeletal Surgical Hx: No Pertinent History Male Surgical History: No Pertinent History, Testicular Surgery Other Surgical History: Two cysts removed- one from big toe and one from testical, " Vascular nerve stimulator" - Social History Smoking Status: Never smoker How long have you smoked: 6 months Exposure to second hand smoke: Yes Alcohol: None Drug Use: none - Physical Exam Vital Signs: Vital Signs - 24 hr Temp Pulse Resp BP Pulse Ox 12/29/20 07:28 97.4 F 70 16 112/55 94 L 07/29/20 03:20 97.6 F 77 24 168/74 95 07/29/20 03:13 96 07/29/20 03:12 97.6 F 77 24 168/74 95 07/29/20 03:11 97.6 F 77 24 168/74 95 07/29/20 02:00 89 18 106/67 98 07/29/20 01:45 99 07/29/20 01:16 63 16 113/58 98 07/29/20 00:52 64 20 99/65 98 07/28/20 23:57 68 18 111/88 99 07/28/20 22:42 97.2 F 70 20 138/68 95 General Appearance: no apparent distress, obese Neurologic Exam: alert, oriented x 3, cooperative, direct support staff member II-XII nml as tested, sensation nml, No motor deficits, No sensory deficit Eye Exam: PERRL/EOMI, eyes nml inspection Respiratory Exam: normal breath sounds, lungs clear, No respiratory distress Cardiovascular Exam: regular rate/rhythm, normal heart sounds, normal peripheral pulses Gastrointestinal/Abdomen Exam: soft, normal bowel sounds, No tenderness, No mass Extremity Exam: normal inspection, normal range of motion, pelvis stable Skin Exam: normal color, warm, dry, No rash Results - Labs Lab/Micro Results: Lab Results-Last 24 Hours 07/28/20 07/28/20 07/28/20 Range/Units 23:15 23:15 23:22 WBC 5.1 (4.0-10.5) K/mm3 RBC 4.67 (4.1-5.6) M/mm3 Hgb 13.6 (12.5-18.0) gm/dl Hct 42.0 (42-50) % MCV 89.9 (78-100) fl MCH 29.1 (26-32) pg MCHC 32.4 (32-36) g/dl RDW 14.2 H (11.5-14.0) % Plt Count 200 (150-450) K/mm3 MPV 12.4 H (7.5-11.0) fl Gran % 70.1 H (36.0-66.0) % Eos # (Auto) 0.18 (0-0.5) Absolute Lymphs (auto) 0.78 L (1.0-4.6) Absolute Monos (auto) 0.55 (0.0-1.3) Lymphocytes % 15.4 L (24.0-44.0) % Monocytes % 10.8 (0.0-12.0) % Eosinophils % 3.5 (0.00-5.0) % Basophils % 0.2 (0.0-0.4) % Absolute Granulocytes 3.56 (1.4-6.9) Basophils # 0.01 (0-0.4) Sodium (137-145) mmol/L Potassium (3.5-5.1) mmol/L Chloride (98-107) mmol/L Carbon Dioxide (22-30) mmol/L Anion Gap (5-15) MEQ/L BUN (9-20) mg/dL Creatinine (0.66-1.25) mg/dL Estimated GFR ML/MIN Glucose (74-106) mg/dL Calcium (8.4-10.2) mg/dL Total Bilirubin (0.2-1.3) mg/dL AST (17-59) U/L ALT (0-50) U/L Alkaline Phosphatase (38-126) U/L Troponin I (0.000-0.034) ng/mL Serum Total Protein (6.3-8.2) g/dL Albumin (3.5-5.0) g/dL Urine Color YELLOW (YELLOW) Urine Appearance CLEAR (CLEAR) Urine pH 5.0 (5-6) Ur Specific [place] 1.012 (1.005-1.025) Urine Protein NEGATIVE (Negative) Urine Ketones NEGATIVE (NEGATIVE) Urine Blood NEGATIVE (0-5) Urban/ul Urine Nitrite NEGATIVE (NEGATIVE) Urine Bilirubin NEGATIVE (NEGATIVE) Urine Urobilinogen 2 (0-1) mg/dL Ur Leukocyte Esterase NEGATIVE (NEGATIVE) Urine WBC (Auto) NONE (0-5) /HPF Urine RBC (Auto) NONE (0-2) /HPF U Epithel Cells (Auto) NONE (FEW) /HPF Urine Bacteria (Auto) NONE (NEGATIVE) /HPF Urine Mucus (Auto) SLIGHT (NEGATIVE) /HPF Urine Culture Reflexed NO (NO) Urine Glucose NEGATIVE (NEGATIVE) mg/dL Salicylates (2-20) mg/dL Urine Opiates Level NEGATIVE (NEGATIVE) Ur Methadone NEGATIVE (NEGATIVE) Acetaminophen (10-30) ug/ml Urine Barbiturates NEGATIVE (NEGATIVE) Ur Phencyclidine (PCP) NEGATIVE (NEGATIVE) Urine Amphetamine NEGATIVE (NEGATIVE) U Benzodiazepine Level NEGATIVE (NEGATIVE) Urine Cocaine NEGATIVE (NEGATIVE) Urine Marijuana (THC) NEGATIVE (NEGATIVE) Ethyl Alcohol (0-10) mg/dL 07/28/20 07/29/20 07/29/20 Range/Units 23:22 00:00 04:00 WBC 6.0 (4.0-10.5) K/mm3 RBC 4.36 (4.1-5.6) M/mm3 Hgb 12.5 (12.5-18.0) gm/dl Hct 40.0 L (42-50) % MCV 91.7 (78-100) fl MCH 28.7 (26-32) pg MCHC 31.3 L (32-36) g/dl RDW 14.2 H (11.5-14.0) % Plt Count 196 (150-450) K/mm3 MPV 12.7 H (7.5-11.0) fl Gran % 67.2 H (36.0-66.0) % Eos # (Auto) 0.19 (0-0.5) Absolute Lymphs (auto) 0.94 L (1.0-4.6) Absolute Monos (auto) 0.83 (0.0-1.3) Lymphocytes % 15.6 L (24.0-44.0) % Monocytes % 13.8 H (0.0-12.0) % Eosinophils % 3.2 (0.00-5.0) % Basophils % 0.2 (0.0-0.4) % Absolute Granulocytes 4.04 (1.4-6.9) Basophils # 0.01 (0-0.4) Sodium 134 L (137-145) mmol/L Potassium 4.3 (3.5-5.1) mmol/L Chloride 105 (98-107) mmol/L Carbon Dioxide 21 L (22-30) mmol/L Anion Gap 12.7 (5-15) MEQ/L BUN 26 H (9-20) mg/dL Creatinine 1.52 H (0.66-1.25) mg/dL Estimated GFR 48.7 ML/MIN Glucose 151 H (74-106) mg/dL Calcium 9.2 (8.4-10.2) mg/dL Total Bilirubin 1.00 (0.2-1.3) mg/dL AST 24 (17-59) U/L ALT 15 (0-50) U/L Alkaline Phosphatase 161 H (38-126) U/L Troponin I < 0.012 (0.000-0.034) ng/mL Serum Total Protein 7.2 (6.3-8.2) g/dL Albumin 4.0 (3.5-5.0) g/dL Urine Color (YELLOW) Urine Appearance (CLEAR) Urine pH (5-6) Ur Specific [place] (1.005-1.025) Urine Protein (Negative) Urine Ketones (NEGATIVE) Urine Blood (0-5) Urban/ul Urine Nitrite (NEGATIVE) Urine Bilirubin (NEGATIVE) Urine Urobilinogen (0-1) mg/dL Ur Leukocyte Esterase (NEGATIVE) Urine WBC (Auto) (0-5) /HPF Urine RBC (Auto) (0-2) /HPF U Epithel Cells (Auto) (FEW) /HPF Urine Bacteria (Auto) (NEGATIVE) /HPF Urine Mucus (Auto) (NEGATIVE) /HPF Urine Culture Reflexed (NO) Urine Glucose (NEGATIVE) mg/dL Salicylates < 1.0 L (2-20) mg/dL Urine Opiates Level (NEGATIVE) Ur Methadone (NEGATIVE) Acetaminophen < 10 L (10-30) ug/ml Urine Barbiturates (NEGATIVE) Ur Phencyclidine (PCP) (NEGATIVE) Urine Amphetamine (NEGATIVE) U Benzodiazepine Level (NEGATIVE) Urine Cocaine (NEGATIVE) Urine Marijuana (THC) (NEGATIVE) Ethyl Alcohol < 10 (0-10) mg/dL 07/29/20 07/29/20 07/29/20 Range/Units 04:00 04:17 06:45 WBC (4.0-10.5) K/mm3 RBC (4.1-5.6) M/mm3 Hgb (12.5-18.0) gm/dl Hct (42-50) % MCV (78-100) fl MCH (26-32) pg MCHC (32-36) g/dl RDW (11.5-14.0) % Plt Count (150-450) K/mm3 MPV (7.5-11.0) fl Gran % (36.0-66.0) % Eos # (Auto) (0-0.5) Absolute Lymphs (auto) (1.0-4.6) Absolute Monos (auto) (0.0-1.3) Lymphocytes % (24.0-44.0) % Monocytes % (0.0-12.0) % Eosinophils % (0.00-5.0) % Basophils % (0.0-0.4) % Absolute Granulocytes (1.4-6.9) Basophils # (0-0.4) Sodium 137 (137-145) mmol/L Potassium 4.1 (3.5-5.1) mmol/L Chloride 105 (98-107) mmol/L Carbon Dioxide 25 (22-30) mmol/L Anion Gap 10.2 (5-15) MEQ/L BUN 24 H (9-20) mg/dL Creatinine 1.39 H (0.66-1.25) mg/dL Estimated GFR 54.0 ML/MIN Glucose 109 H (74-106) mg/dL Calcium 9.0 (8.4-10.2) mg/dL Total Bilirubin (0.2-1.3) mg/dL AST (17-59) U/L ALT (0-50) U/L Alkaline Phosphatase (38-126) U/L Troponin I < 0.012 < 0.012 (0.000-0.034) ng/mL Serum Total Protein (6.3-8.2) g/dL Albumin (3.5-5.0) g/dL Urine Color (YELLOW) Urine Appearance (CLEAR) Urine pH (5-6) Ur Specific [place] (1.005-1.025) Urine Protein (Negative) Urine Ketones (NEGATIVE) Urine Blood (0-5) Urban/ul Urine Nitrite (NEGATIVE) Urine Bilirubin (NEGATIVE) Urine Urobilinogen (0-1) mg/dL Ur Leukocyte Esterase (NEGATIVE) Urine WBC (Auto) (0-5) /HPF Urine RBC (Auto) (0-2) /HPF U Epithel Cells (Auto) (FEW) /HPF Urine Bacteria (Auto) (NEGATIVE) /HPF Urine Mucus (Auto) (NEGATIVE) /HPF Urine Culture Reflexed (NO) Urine Glucose (NEGATIVE) mg/dL Salicylates (2-20) mg/dL Urine Opiates Level (NEGATIVE) Ur Methadone (NEGATIVE) Acetaminophen (10-30) ug/ml Urine Barbiturates (NEGATIVE) Ur Phencyclidine (PCP) (NEGATIVE) Urine Amphetamine (NEGATIVE) U Benzodiazepine Level (NEGATIVE) Urine Cocaine (NEGATIVE) Urine Marijuana (THC) (NEGATIVE) Ethyl Alcohol (0-10) mg/dL 07/29/20 Range/Units 09:45 WBC (4.0-10.5) K/mm3 RBC (4.1-5.6) M/mm3 Hgb (12.5-18.0) gm/dl Hct (42-50) % MCV (78-100) fl MCH (26-32) pg MCHC (32-36) g/dl RDW (11.5-14.0) % Plt Count (150-450) K/mm3 MPV (7.5-11.0) fl Gran % (36.0-66.0) % Eos # (Auto) (0-0.5) Absolute Lymphs (auto) (1.0-4.6) Absolute Monos (auto) (0.0-1.3) Lymphocytes % (24.0-44.0) % Monocytes % (0.0-12.0) % Eosinophils % (0.00-5.0) % Basophils % (0.0-0.4) % Absolute Granulocytes (1.4-6.9) Basophils # (0-0.4) Sodium (137-145) mmol/L Potassium (3.5-5.1) mmol/L Chloride (98-107) mmol/L Carbon Dioxide (22-30) mmol/L Anion Gap (5-15) MEQ/L BUN (9-20) mg/dL Creatinine (0.66-1.25) mg/dL Estimated GFR ML/MIN Glucose (74-106) mg/dL Calcium (8.4-10.2) mg/dL Total Bilirubin (0.2-1.3) mg/dL AST (17-59) U/L ALT (0-50) U/L Alkaline Phosphatase (38-126) U/L Troponin I < 0.012 (0.000-0.034) ng/mL Serum Total Protein (6.3-8.2) g/dL Albumin (3.5-5.0) g/dL Urine Color (YELLOW) Urine Appearance (CLEAR) Urine pH (5-6) Ur Specific [place] (1.005-1.025) Urine Protein (Negative) Urine Ketones (NEGATIVE) Urine Blood (0-5) Urban/ul Urine Nitrite (NEGATIVE) Urine Bilirubin (NEGATIVE) Urine Urobilinogen (0-1) mg/dL Ur Leukocyte Esterase (NEGATIVE) Urine WBC (Auto) (0-5) /HPF Urine RBC (Auto) (0-2) /HPF U Epithel Cells (Auto) (FEW) /HPF Urine Bacteria (Auto) (NEGATIVE) /HPF Urine Mucus (Auto) (NEGATIVE) /HPF Urine Culture Reflexed (NO) Urine Glucose (NEGATIVE) mg/dL Salicylates (2-20) mg/dL Urine Opiates Level (NEGATIVE) Ur Methadone (NEGATIVE) Acetaminophen (10-30) ug/ml Urine Barbiturates (NEGATIVE) Ur Phencyclidine (PCP) (NEGATIVE) Urine Amphetamine (NEGATIVE) U Benzodiazepine Level (NEGATIVE) Urine Cocaine (NEGATIVE) Urine Marijuana (THC) (NEGATIVE) Ethyl Alcohol (0-10) mg/dL Accuchecks Date 07/29/20 Time 07:35 Assessment/Plan (1) Acute renal injury Current Visit: Yes Status: Acute Assessment & Plan: bun/cr improved since admission with gentle hydration, impairment is mild and unlikely to explain symptoms. Code(s): N17.9 - ACUTE KIDNEY FAILURE, UNSPECIFIED (2) Aggressive behavior Current Visit: Yes Status: Acute Code(s): R46.89 - OTHER SYMPTOMS AND SIGNS INVOLVING APPEARANCE AND BEHAVIOR (3) Psychosis Current Visit: No Status: Acute Assessment & Plan: if no obvious relation to neuro then assume his symptoms are again psych related, may need to return to [facility] facility in [place] if bizarre behaviors continue, continue his olanzapine that was started during his recent admission there. (4) Seizure disorder Current Visit: No Status: Acute Assessment & Plan: unclear if he had a seizure or not, MRI not an option due to vns stimulator. will consult teleneuro regarding recommendations with meds or EEG etc. Code(s): G40.909 - EPILEPSY, UNSP, NOT INTRACTABLE, WITHOUT STATUS EPILEPTICUS
--- NOTE | 2020-07-29 11:33 | XRAY ---
Indication: Confusion. History seizures. Multiple contiguous axial images obtained through the head without contrast. Comparison: July 08, 2020. Stable age-appropriate global atrophy, minimal periventricular degenerative micro-ischemia, and small bilateral basal ganglia remote infarcts. No acute intracranial hemorrhage, abnormal extra-axial fluid collection, or mass effect. Fourth ventricle is midline without hydrocephalus. Bony calvarium intact. Visualized paranasal sinuses and mastoid air cells remain clear. Impression: Stable atrophy, degenerative micro-ischemia, and old bilateral basal ganglia infarcts. No new/acute intracranial abnormalities.
[2020-07-29] MEDS ORDERED: Ventolin Hfa MDI IH PRN (12:18)
[2020-07-29] MEDS ORDERED: VENTOLIN COMMON CANISTER IH PRN (12:24)
[2020-07-29] MEDS ORDERED: MEDICATION INTERVENTION MC SCH ×2 (12:45→13:00)
[2020-07-29] MEDS ORDERED: LACOSAMIDE 200 MG PO SCH (15:00)
[2020-07-29] MEDS: Lyrica 50MG PO SCH ×2 (15:09→23:10)
[2020-07-29] MEDS: Cozaar 50 MG PO SCH ×2 (15:10→23:08)
[2020-07-29] MEDS: Cymbalta 30 MG Capsule PO SCH (15:10)
[2020-07-29] MEDS: Catapres 0.1 MG PO SCH (15:11)
[2020-07-29] MEDS: Vitamin B-12 500 MCG PO SCH (15:11)
[2020-07-29] MEDS: Protonix 40MG Tablet PO SCH (15:13)
[2020-07-29] MEDS: Vitamin E 400 UNIT SOFTGEL PO SCH (16:26)
[2020-07-29] MEDS: PATIENT OWN MEDICATION PO SCH ×3 (16:27→23:12)
[2020-07-29] MEDS: Zyprexa Zydis 5 MG PO SCH (16:27)
[2020-07-29] MEDS ORDERED: REMERON 30 MG PO SCH (22:00)
[2020-07-29] MEDS ORDERED: Zyprexa Zydis 5 MG PO SCH (22:00)
[2020-07-29] MEDS ORDERED: MIRTAZAPINE 7.5 MG PO SCH (22:00)
[2020-07-29] MEDS ORDERED: NON-FORMULARY ITEM (Losartan Potassium [Cozaar] 25 MG) PO SCH (22:00)
[2020-07-29] MEDS ORDERED: BRIVARACETAM PO SCH (22:00)
[2020-07-30 05:55] LABS: Absolute Neutrophil Ct (ANC) 2.77 (1.4-6.9); BASOPHIL % 0.2 % (0.0-0.4); Basophil (Absolute #) 0.01 (0-0.4); Eosinophil % 4.4 % (0.00-5.0); Eosinophil (Absolute #) 0.21 (0-0.5); Hematocrit 36.2 % (42-50); Hemoglobin 11.3 gm/dl (12.5-18.0); Lymphocyte (Absolute #) 1.23 (1.0-4.6); Lymphocytes % 25.7 % (24.0-44.0); Mean Cell Volume 92.1 fl (78-100); Mean Corpuscular Hemoglobin 28.8 pg (26-32); Mean Corpuscular Hgb Concent. 31.2 g/dl (32-36); Mean Platelet Volume 12.8 fl (7.5-11.0); Monocyte (Absolute #) 0.57 (0.0-1.3); Monocytes % 11.9 % (0.0-12.0); Neutrophil % 57.8 % (36.0-66.0); Platelet Count 174 K/mm3 (150-450); Red Blood Count 3.93 M/mm3 (4.1-5.6); Red Cell Distribution Width 14.2 % (11.5-14.0); White Blood Count 4.8 K/mm3 (4.0-10.5)
[2020-07-30 06:21] LABS: BLOOD UREA NITROGEN 20 mg/dL (9-20); CHLORIDE 108 mmol/L (98-107); Calcium 8.5 mg/dL (8.4-10.2); Carbon Dioxide 23 mmol/L (22-30); Creatinine 1 1.14 mg/dL (0.66-1.25); EST GLOMERULAR FILTRATION RATE > 60.0 ML/MIN; Glucose 113 mg/dL (74-106); SODIUM 137 mmol/L (137-145)
--- NOTE | 2020-07-30 09:03 | PCM.NOTE ---
Date and Time: 07/30/20 0900 Subjective Assessment: patient is alert and pleasant this morning, describing some concerns over partying in his apartment parking lot and some mild paranoia but he is cooperative, has no plans to harm himself or anyone else and is alert and oriented x 3 Objective Exam General Appearance: no apparent distress, obese Neurologic Exam: alert, oriented x 3, cooperative Neck Exam: normal inspection, non-tender, supple, full range of motion Respiratory Exam: normal breath sounds, lungs clear, No respiratory distress Cardiovascular Exam: regular rate/rhythm, normal heart sounds Gastrointestinal/Abdomen Exam: soft, No tenderness, No mass Extremity Exam: normal inspection, normal range of motion OBJECTIVE DATA Vital Signs: Vital Signs - 24 hr Temp Pulse Resp BP Pulse Ox 07/30/20 08:00 97.6 F 67 22 133/58 94 L 07/30/20 04:00 98.2 F 84 18 129/54 95 07/29/20 23:56 97.6 F 67 21 126/56 98 07/29/20 19:52 97.3 F 75 19 118/58 97 07/29/20 16:00 97.4 F 77 16 99/54 97 07/29/20 12:00 98.0 F 78 16 123/58 97 Pain Assessment - Last Documented Pain Intensity 0 Intake and Output: Intake & Output 07/27/20 07/28/20 07/29/20 07/30/20 11:59 11:59 11:59 11:59 Intake Total 600 3896 Output Total 800 1275 Balance -200 2621 Weight 146.7 kg Lab Results: Lab Results-Last 24 Hours 07/29/20 07/29/20 07/29/20 Range/Units 09:45 11:59 14:14 WBC (4.0-10.5) K/mm3 RBC (4.1-5.6) M/mm3 Hgb (12.5-18.0) gm/dl Hct (42-50) % MCV (78-100) fl MCH (26-32) pg MCHC (32-36) g/dl RDW (11.5-14.0) % Plt Count (150-450) K/mm3 MPV (7.5-11.0) fl Gran % (36.0-66.0) % Eos # (Auto) (0-0.5) Absolute Lymphs (auto) (1.0-4.6) Absolute Monos (auto) (0.0-1.3) Lymphocytes % (24.0-44.0) % Monocytes % (0.0-12.0) % Eosinophils % (0.00-5.0) % Basophils % (0.0-0.4) % Absolute Granulocytes (1.4-6.9) Basophils # (0-0.4) Sodium (137-145) mmol/L Potassium (3.5-5.1) mmol/L Chloride (98-107) mmol/L Carbon Dioxide (22-30) mmol/L Anion Gap (5-15) MEQ/L BUN (9-20) mg/dL Creatinine (0.66-1.25) mg/dL Estimated GFR ML/MIN Glucose (74-106) mg/dL POC Glucometer 122 H (74 to 106) mg/dL Calcium (8.4-10.2) mg/dL Troponin I < 0.012 < 0.012 (0.000-0.034) ng/mL 07/29/20 07/29/20 07/30/20 Range/Units 16:25 20:31 04:40 WBC 4.8 (4.0-10.5) K/mm3 RBC 3.93 L (4.1-5.6) M/mm3 Hgb 11.3 L (12.5-18.0) gm/dl Hct 36.2 L (42-50) % MCV 92.1 (78-100) fl MCH 28.8 (26-32) pg MCHC 31.2 L (32-36) g/dl RDW 14.2 H (11.5-14.0) % Plt Count 174 (150-450) K/mm3 MPV 12.8 H (7.5-11.0) fl Gran % 57.8 (36.0-66.0) % Eos # (Auto) 0.21 (0-0.5) Absolute Lymphs (auto) 1.23 (1.0-4.6) Absolute Monos (auto) 0.57 (0.0-1.3) Lymphocytes % 25.7 (24.0-44.0) % Monocytes % 11.9 (0.0-12.0) % Eosinophils % 4.4 (0.00-5.0) % Basophils % 0.2 (0.0-0.4) % Absolute Granulocytes 2.77 (1.4-6.9) Basophils # 0.01 (0-0.4) Sodium (137-145) mmol/L Potassium (3.5-5.1) mmol/L Chloride (98-107) mmol/L Carbon Dioxide (22-30) mmol/L Anion Gap (5-15) MEQ/L BUN (9-20) mg/dL Creatinine (0.66-1.25) mg/dL Estimated GFR ML/MIN Glucose (74-106) mg/dL POC Glucometer 124 H 109 H (74 to 106) mg/dL Calcium (8.4-10.2) mg/dL Troponin I (0.000-0.034) ng/mL 07/30/20 07/30/20 Range/Units 04:40 07:12 WBC (4.0-10.5) K/mm3 RBC (4.1-5.6) M/mm3 Hgb (12.5-18.0) gm/dl Hct (42-50) % MCV (78-100) fl MCH (26-32) pg MCHC (32-36) g/dl RDW (11.5-14.0) % Plt Count (150-450) K/mm3 MPV (7.5-11.0) fl Gran % (36.0-66.0) % Eos # (Auto) (0-0.5) Absolute Lymphs (auto) (1.0-4.6) Absolute Monos (auto) (0.0-1.3) Lymphocytes % (24.0-44.0) % Monocytes % (0.0-12.0) % Eosinophils % (0.00-5.0) % Basophils % (0.0-0.4) % Absolute Granulocytes (1.4-6.9) Basophils # (0-0.4) Sodium 137 (137-145) mmol/L Potassium 4.0 (3.5-5.1) mmol/L Chloride 108 H (98-107) mmol/L Carbon Dioxide 23 (22-30) mmol/L Anion Gap 9.0 (5-15) MEQ/L BUN 20 (9-20) mg/dL Creatinine 1.14 (0.66-1.25) mg/dL Estimated GFR > 60.0 ML/MIN Glucose 113 H (74-106) mg/dL POC Glucometer 109 H (74 to 106) mg/dL Calcium 8.5 (8.4-10.2) mg/dL Troponin I (0.000-0.034) ng/mL Radiology Exams: Radiology Procedures Category Date Time Status HEAD WITHOUT CONTRAST [CT] Routine Exams 07/29/20 10:32 Completed Assessment/Plan (1) Acute renal injury Current Visit: Yes Status: Acute Assessment & Plan: resolved Code(s): N17.9 - ACUTE KIDNEY FAILURE, UNSPECIFIED (2) Aggressive behavior Current Visit: Yes Status: Acute Assessment & Plan: will consult psych, no seizure activity since admission, nothing acute on head ct, if eeg with no concerning discharges unlikely related to his seizures. appears to be psych related, will consult [facility] regarding recommendations for discharge with outpatient followup vs transfer back to [facility] if they feel he is unsafe for discharge. I feel he has some strange ideas but is alert and oriented and has no plans to harm himself or anyone else currently Code(s): R46.89 - OTHER SYMPTOMS AND SIGNS INVOLVING APPEARANCE AND BEHAVIOR (3) Psychosis Current Visit: No Status: Acute (4) Seizure disorder Current Visit: No Status: Acute Code(s): G40.909 - EPILEPSY, UNSP, NOT INTRACTABLE, WITHOUT STATUS EPILEPTICUS
[2020-07-30] MEDS: Catapres 0.1 MG PO SCH (09:06)
[2020-07-30] MEDS: Cymbalta 30 MG Capsule PO SCH (09:06)
[2020-07-30] MEDS: Lyrica 50MG PO SCH ×2 (09:06→15:07)
[2020-07-30] MEDS: Zyprexa Zydis 5 MG PO SCH (09:07)
[2020-07-30] MEDS: PATIENT OWN MEDICATION PO SCH ×3 (09:07→15:08)
[2020-07-30] MEDS: Protonix 40MG Tablet PO SCH (09:07)
[2020-07-30] MEDS: Vitamin E 400 UNIT SOFTGEL PO SCH (09:07)
[2020-07-30] MEDS: Cozaar 50 MG PO SCH (09:07)
[2020-07-30] MEDS: Vitamin B-12 500 MCG PO SCH (09:14)
[2020-07-30] MEDS ORDERED: NON-FORMULARY ITEM (Cyanocobalamin (Vitamin B-12) [B-12] 1,000 MCG) PO SCH (10:00)
[2020-07-30 11:10] VITALS: BP 144/63; PULSE 83; O2SAT 98
--- NOTE | 2020-07-30 14:31 | XRAY ---
Indication: Pain following surgery April 2020. Comparison: None 3 view right ankle demonstrates old distal fibula/lateral malleolus and medial malleolus fractures with intact fixation plate/screws, soft tissue swelling, and small posterior heel spur. No other bony, articular, or soft tissue abnormalities.
--- NOTE | 2020-07-30 14:47 | PCM.DS ---
Discharge Summary Date of Admission: 07/29/20 03:07 Admitting Physician: CITLALLI GARCIA Consults: Consults on Case 07/29/20 10:31 Consult Neurology ROUTINE Primary Care Provider: CITLALLI GARCIA Allergies Allergies adhesive Adverse Reaction (Unknown, Verified 07/29/20 03:17) adhesive tape, swell and itches Hospital Summary - Hospital Course Hospital Course: patient came to ER with complaint of mental status changes, hx seizure disorder. no observed seizures here, has vns stimulator. recent psychosis, has been cleared by psych. eeg diffuse slowing but nothing focal and ct head nothing acute. - Vitals & Intake/Output Vital Signs: Vital Signs Temperature 97.5 F 07/30/20 11:09 Pulse Rate 83 07/30/20 11:09 Respiratory Rate 22 07/30/20 11:09 Blood Pressure 144/63 07/30/20 11:09 O2 Sat by Pulse Oximetry 98 07/30/20 11:09 Intake & Output: Intake & Output 07/28/20 07/29/20 07/30/20 07/31/20 11:59 11:59 11:59 11:59 Intake Total 600 4376 240 Output Total 800 1275 Balance -200 3101 240 Weight 146.7 kg - Lab Result Diagrams: 07/30/20 04:40 07/30/20 04:40 Lab Results-Last 24 Hrs: Lab Results-Last 24 Hours 07/29/20 07/29/20 07/29/20 Range/Units 14:14 16:25 20:31 WBC (4.0-10.5) K/mm3 RBC (4.1-5.6) M/mm3 Hgb (12.5-18.0) gm/dl Hct (42-50) % MCV (78-100) fl MCH (26-32) pg MCHC (32-36) g/dl RDW (11.5-14.0) % Plt Count (150-450) K/mm3 MPV (7.5-11.0) fl Gran % (36.0-66.0) % Eos # (Auto) (0-0.5) Absolute Lymphs (auto) (1.0-4.6) Absolute Monos (auto) (0.0-1.3) Lymphocytes % (24.0-44.0) % Monocytes % (0.0-12.0) % Eosinophils % (0.00-5.0) % Basophils % (0.0-0.4) % Absolute Granulocytes (1.4-6.9) Basophils # (0-0.4) Sodium (137-145) mmol/L Potassium (3.5-5.1) mmol/L Chloride (98-107) mmol/L Carbon Dioxide (22-30) mmol/L Anion Gap (5-15) MEQ/L BUN (9-20) mg/dL Creatinine (0.66-1.25) mg/dL Estimated GFR ML/MIN Glucose (74-106) mg/dL POC Glucometer 124 H 109 H (74 to 106) mg/dL Calcium (8.4-10.2) mg/dL Troponin I < 0.012 (0.000-0.034) ng/mL 07/30/20 07/30/20 07/30/20 Range/Units 04:40 04:40 07:12 WBC 4.8 (4.0-10.5) K/mm3 RBC 3.93 L (4.1-5.6) M/mm3 Hgb 11.3 L (12.5-18.0) gm/dl Hct 36.2 L (42-50) % MCV 92.1 (78-100) fl MCH 28.8 (26-32) pg MCHC 31.2 L (32-36) g/dl RDW 14.2 H (11.5-14.0) % Plt Count 174 (150-450) K/mm3 MPV 12.8 H (7.5-11.0) fl Gran % 57.8 (36.0-66.0) % Eos # (Auto) 0.21 (0-0.5) Absolute Lymphs (auto) 1.23 (1.0-4.6) Absolute Monos (auto) 0.57 (0.0-1.3) Lymphocytes % 25.7 (24.0-44.0) % Monocytes % 11.9 (0.0-12.0) % Eosinophils % 4.4 (0.00-5.0) % Basophils % 0.2 (0.0-0.4) % Absolute Granulocytes 2.77 (1.4-6.9) Basophils # 0.01 (0-0.4) Sodium 137 (137-145) mmol/L Potassium 4.0 (3.5-5.1) mmol/L Chloride 108 H (98-107) mmol/L Carbon Dioxide 23 (22-30) mmol/L Anion Gap 9.0 (5-15) MEQ/L BUN 20 (9-20) mg/dL Creatinine 1.14 (0.66-1.25) mg/dL Estimated GFR > 60.0 ML/MIN Glucose 113 H (74-106) mg/dL POC Glucometer 109 H (74 to 106) mg/dL Calcium 8.5 (8.4-10.2) mg/dL Troponin I (0.000-0.034) ng/mL 07/30/ Range/Units 11:59 WBC (4.0-10.5) K/mm3 RBC (4.1-5.6) M/mm3 Hgb (12.5-18.0) gm/dl Hct (42-50) % MCV (78-100) fl MCH (26-32) pg MCHC (32-36) g/dl RDW (11.5-14.0) % Plt Count (150-450) K/mm3 MPV (7.5-11.0) fl Gran % (36.0-66.0) % Eos # (Auto) (0-0.5) Absolute Lymphs (auto) (1.0-4.6) Absolute Monos (auto) (0.0-1.3) Lymphocytes % (24.0-44.0) % Monocytes % (0.0-12.0) % Eosinophils % (0.00-5.0) % Basophils % (0.0-0.4) % Absolute Granulocytes (1.4-6.9) Basophils # (0-0.4) Sodium (137-145) mmol/L Potassium (3.5-5.1) mmol/L Chloride (98-107) mmol/L Carbon Dioxide (22-30) mmol/L Anion Gap (5-15) MEQ/L BUN (9-20) mg/dL Creatinine (0.66-1.25) mg/dL Estimated GFR ML/MIN Glucose (74-106) mg/dL POC Glucometer 88 (74 to 106) mg/dL Calcium (8.4-10.2) mg/dL Troponin I (0.000-0.034) ng/mL Micro Results-Entire Visit: Accuchecks Date 07/30/20 Date 07/30/20 Date 07/29/20 Date 07/29/20 Time 11:59 Time 07:12 Time 22:00 Time 16:27 - Radiology Exams Ordered Rad Exams-Entire Visit: Radiology Procedures Category Date Time Status ANKLE (3 VIEWS) Urgent Exams 07/30/20 13:59 Completed HEAD WITHOUT CONTRAST [CT] Routine Exams 07/29/20 10:32 Completed - Procedures and Test Procedures and Tests throughout Hospitalization: Therapy Orders & Screens 07/30/20 08:59 EEG 41-60 Minutes (Normal) ONCE Comment: Reason For Exam: Diagnosis: ACUTE RENAL INJURY, DEHYDRATION, AGGRESSIVE BEHAVIOR Discharge Exam General Appearance: no apparent distress, alert, obese Neurologic Exam: alert, oriented x 3, cooperative, normal mood/affect, nml cerebellar function, sensation nml, No motor deficits Respiratory Exam: normal breath sounds, lungs clear, No respiratory distress Cardiovascular Exam: regular rate/rhythm, normal heart sounds Gastrointestinal/Abdomen Exam: soft, No tenderness, No mass Final Diagnosis/Problem List - Final Discharge Diagnosis/Problem (1) Acute renal injury Current Visit: Yes Status: Acute Assessment & Plan: resolved Code(s): N17.9 - ACUTE KIDNEY FAILURE, UNSPECIFIED (2) Aggressive behavior Current Visit: Yes Status: Acute Assessment & Plan: resolved, cleared by psych. will f/u with aaron akers as outpatient. Code(s): R46.89 - OTHER SYMPTOMS AND SIGNS INVOLVING APPEARANCE AND BEHAVIOR (3) Psychosis Current Visit: No Status: Acute (4) Seizure disorder Current Visit: No Status: Acute Assessment & Plan: needs to f/u with Dr Richardson as outpatient Code(s): G40.909 - EPILEPSY, UNSP, NOT INTRACTABLE, WITHOUT STATUS EPILEPTICUS - Discharge Disposition: Home, Self-Care Condition: Stable Prescriptions: Continue PANTOPRAZOLE 40 mg Tablet [Protonix 40MG Tablet] 40 mg PO DAILY Vitamin E 400 unit PO DAILY Pregabalin 50 mg [Lyrica 50MG] 50 mg PO TID Albuterol Sulfate [Proair Hfa] 2 puff IH UD PRN PRN Reason: Shortness Of Breath/Wheezing Brivaracetam [Briviact] 1 tab PO BID Duloxetine HCl 30 mg [Cymbalta 30 MG Capsule] 90 mg PO DAILY Mirtazapine [Remeron] 7.5 mg PO HS Clonidine HCl 0.1 mg [Catapres 0.1 MG] 0.1 mg PO DAILY Atorvastatin Calcium [Lipitor 20MG Tablet] 20 mg PO HS Losartan Potassium [Cozaar] 25 mg PO BID Lacosamide [Vimpat] 200 mg PO TID Olanzapine Odt 5 mg [Zyprexa Zydis 5 MG] 5 mg PO DAILY Olanzapine Odt 5 mg [Zyprexa Zydis 5 MG] 7.5 mg PO HS Cyanocobalamin (Vitamin B-12) [B-12] 1,000 mcg PO DAILY Ibuprofen [IBUPROFEN 400 MG TABLET] 2 tablet PO Q8H PRN PRN PRN Reason: Pain Additional Instructions: resume all home meds, see Dr Richardson for followup on seizures, please forward eeg, ct and all hospital documentation to his office f/u with [facility] in 1 week as scheduled. Follow up with: AMBROCIO RICHARDSON [NON-STAFF PHY W/O PRIVILEGES] - (MAKE APPT IN AFTERNOON ) ILDEFONSO GARCIA MD [CONSULTING PHYSICIAN] - 1 Week ([facility] as scheduled)
== END 2020-07-30 15:34 | disposition home or self-care (01) ==
LOC: ED 22:38 → MED SURG 07-29 03:07
PROVIDERS: ADMIT Family Medicine; ATTEND Family Medicine
DX: N17.9 Acute kidney failure, unspecified (principal); R41.82 Altered mental status, unspecified; F29 Unspecified psychosis not due to a substance or known physiological condition; G40.909 Epilepsy, unspecified, not intractable, without status epilepticus; Z79.899 Other long term (current) drug therapy; E86.0 Dehydration; Z96.82 Presence of neurostimulator; E11.9 Type 2 diabetes mellitus without complications; J44.9 Chronic obstructive pulmonary disease, unspecified; E78.00 Pure hypercholesterolemia, unspecified
CPT/HCPCS: 36000; 36415; 70450; 73610; 80048; 80053; 80307; 81001; 82947; 84484; 85025; 93041; 95812; 99284; G0480; P9612; G0378; Q3014; A9270-GY

== ENCOUNTER 2020-11-27 06:04 | Day surgery (SDC) | payer MEDICARE ==
[2020-11-27] MEDS ORDERED: Lactated Ringers 1,000 ML IV ONE (06:09)
[2020-11-27] MEDS ORDERED: Sodium Chloride 0.9% 1000 ML 1,000 ML IV SCH (06:30)
[2020-11-27] MEDS ORDERED: Lactated Ringers 1,000 ML IV SCH (06:30)
[2020-11-27 09:08] VITALS: BP 128/70; PULSE 81; O2SAT 97
--- NOTE | 2020-11-27 11:41 | OP ---
SURGERY DATE/TIME: 11/27/2020 0810 PREOPERATIVE DIAGNOSIS: Epigastric abdominal pain. POSTOPERATIVE DIAGNOSES: 1) Moderate gastritis. 2) Hiatal hernia. PROCEDURE: EGD. SURGEON: Salvador Arevalo M.D. ANESTHESIA: MAC by Kenneth Ziegler CRNA. ESTIMATED BLOOD LOSS: Minimal. SPECIMENS: Three cold forceps biopsies taken from the gastric antrum. DESCRIPTION OF PROCEDURE: After informed written consent was obtained, the patient was taken to the endoscopy suite. He had a bite block inserted and was placed in the left lateral decubitus position. Anesthesia was titrated to the desired level of consciousness. The endoscope was inserted into the posterior oropharynx. Under direct visualization the esophagus was easily traversed and normal in appearance. There was moderate sized hiatal hernia appreciable upon entering the gastric cavity. There was normal rugated gastric mucosa with no lesions or defects until the level of antrum was reached. There were moderate gastritis-type inflammatory changes with no obvious ulceration or bleeding present. The pylorus was traversed and duodenum had a normal mucosal appearance. Three cold forceps biopsies were taken from the gastric antrum and sent for Helicobacter pylori testing. Upon withdrawal again moderate sized hiatal hernia was appreciable but no obvious abnormalities in the gastroesophageal junction or esophageal mucosa were appreciable. The scope is removed and the patient transferred to the recovery room in good condition. I have advised that he discontinue his Meloxicam, continue his proton pump inhibitor therapy and follow up in one week for pathology results.
== END 2020-11-27 09:24 | disposition home or self-care (01) ==
LOC: SDC 06:04
PROVIDERS: ATTEND Family Medicine
DX: K29.70 Gastritis, unspecified, without bleeding (principal); K44.9 Diaphragmatic hernia without obstruction or gangrene; E11.9 Type 2 diabetes mellitus without complications; I10 Essential (primary) hypertension; R56.9 Unspecified convulsions; Z79.899 Other long term (current) drug therapy
CPT/HCPCS: 82947

== ENCOUNTER 2022-05-27 15:33 | Emergency (ER) | payer MEDICARE ==
[2022-05-27 16:47] LABS: Absolute Neutrophil Ct (ANC) 3.55 x10^3/uL (1.4-6.9); Basophil (Absolute #) 0.03 x10^3/uL (0-0.4); Eosinophil % 0.9 % (0.00-5.0); Eosinophil (Absolute #) 0.05 x10^3/uL (0-0.5); Hematocrit 47.9 % (42-50); Hemoglobin 15.4 g/dL (12.5-18.0); Lymphocyte (Absolute #) 1.38 x10^3/uL (1.0-4.6); Lymphocytes % 24.8 % (24.0-44.0); Mean Cell Volume 89.4 fL (78-100); Mean Corpuscular Hemoglobin 28.7 pg (26-32); Mean Corpuscular Hgb Concent. 32.2 g/dL (32-36); Mean Platelet Volume 11.1 fL (7.5-11.0); Monocyte (Absolute #) 0.55 x10^3/uL (0.0-1.3); Monocytes % 9.9 % (0.0-12.0); Neutrophil % 63.7 % (36.0-66.0); Platelet Count 183 x10^3/uL (150-450); Red Blood Count 5.36 x10^6/uL (4.1-5.6); Red Cell Distribution Width 14.9 % (11.5-14.0); White Blood Count 5.6 x10^3/uL (4.0-10.5)
[2022-05-27 17:13] LABS: ACETAMINOPHEN < 10 ug/ml (10-30); ALBUMIN 3.8 g/dL (3.5-5.0); ALKALINE PHOSPHATASE 116 U/L (38-126); ANION GAP 8.9 MEQ/L (5-15); BLOOD UREA NITROGEN 13 mg/dL (9-20); CHLORIDE 104 mmol/L (98-107); Calcium 8.9 mg/dL (8.4-10.2); Carbon Dioxide 27 mmol/L (22-30); Creatinine 1 1.24 mg/dL (0.66-1.25); EST GLOMERULAR FILTRATION RATE > 60.0 ML/MIN; ETHYL ALCOHOL < 10 mg/dL (0-10); Glucose 113 mg/dL (74-106); Potassium 3.6 mmol/L (3.5-5.1); SALICYLATE < 1.0 mg/dL (2-20); SGOT/AST 24 U/L (17-59); SGPT/ALT 21 U/L (0-50); SODIUM 136 mmol/L (137-145); Total Protein 6.6 g/dL (6.3-8.2)
[2022-05-27 19:48] LABS: INFLUENZA A NEGATIVE (NEGATIVE); INFLUENZA B NEGATIVE (NEGATIVE); RESPIRATORY SYNCTIAL VIRUS NEGATIVE (Negative); SARS-CoV-2 Xpert Express NEGATIVE (NEGATIVE)
[2022-05-27 20:10] LABS: Epithelial Cells RARE /HPF (FEW); Mucus SLIGHT /HPF (NEGATIVE); RBC 0-2 /HPF (0-2)
[2022-05-27 20:11] LABS: Appearance CLEAR (CLEAR)
[2022-05-27 20:12] LABS: Bilirubin NEGATIVE (NEGATIVE); Dipstick done @ ? MAIN LAB; Glucose >=1000 mg/dL (NEGATIVE); Ketones TRACE (NEGATIVE); Nitrite NEGATIVE (NEGATIVE); Ph 5.5 (5-6); Protein,Urine Dip TRACE (Negative); RBC NEGATIVE Ery/ul (0-5); Urobilinogen 1 mg/dL (0-1)
[2022-05-27 20:13] LABS: Urine Cultured Indicated? NO
[2022-05-27 20:19] LABS: Amphetamine,Urine NEGATIVE (NEGATIVE); Barbiturate,Urine NEGATIVE (NEGATIVE); Benzodiazepine,Urine NEGATIVE (NEGATIVE); Cocaine,Urine NEGATIVE (NEGATIVE); Methadone,Urine NEGATIVE (NEGATIVE); Opiate,Urine NEGATIVE (NEGATIVE); PCP,Urine NEGATIVE (NEGATIVE); THC,Urine NEGATIVE (NEGATIVE)
--- NOTE | 2022-05-27 21:08 | ERPHSYRPT ---
- History of Present Illness Source: patient Exam Limitations: other (Poor historian) Patient Subjective Stated Complaint: Pt is suicidal and has a plan Triage Nursing Assessment: Pt brought to the ER by his , boyd pope, denies pain, has a plan to commit suicide but will not tell what it is, has attempted in the past, pt is calm and appears in a good mood, denies alcohol or drugs, wants to get help Physician History: 71 yo wm sent [facility] for [facility] ideations. Pt has a bed at [facility] and just needs medical clearance. He states that he is suicidal due to difficulties w his . Pt does not have a plan. Timing/Duration: today Severity of Symptoms-Max: moderate Severity of Symptoms-Current: moderate Context related to: spouse Suicidal thoughts: other (Ideation) Associated Symptoms: angry, depressed, frustrated Previous symptoms: same symptoms as today Allergies/Adverse Reactions: adhesive Adverse Reaction (Unknown, Verified 05/27/22 15:55) adhesive tape, swell and itches Home Medications: PANTOPRAZOLE 40 mg Tablet [Protonix 40MG Tablet] 40 mg PO DAILY 10/17/13 [History] Vitamin E 400 unit PO DAILY 10/17/13 [History] Pregabalin 50 mg [Lyrica 50MG] 50 mg PO TID 03/25/15 [History] Brivaracetam [Briviact] 1 tab PO BID 07/08/20 [History] Atorvastatin Calcium [Lipitor 20MG Tablet] 40 mg PO HS 07/29/20 [History] Cyanocobalamin (Vitamin B-12) [B-12] 1,000 mcg PO DAILY 07/29/20 [History] Duloxetine HCl 30 mg [Cymbalta 30 MG Capsule] 60 mg PO DAILY 07/29/20 [History] Ascorbic Acid [Vitamin C] 500 mg PO TID 11/20/20 [History] Calcium Carb/Vitamin D3/Vit K1 [Calcium + D Soft Chewable Tab] 1 each PO BID 11/20/20 [History] Echinacea 380 mg PO BID 11/20/20 [History] Iron 65 mg PO DAILY 11/20/20 [History] Lacosamide [Vimpat] 50 mg PO BID 04/22/21 [History] Budesonide/Formoterol Fumarate [Symbicort 160-4.5 Mcg Inhaler] 0 gm IH DAILY 05/27/22 [History] Empagliflozin [Jardiance] 10 mg PO DAILY 05/27/22 [History] Sucralfate 1 gm PO TID 05/27/22 [History] Tamsulosin HCl 0.4 mg [Flomax 0.4 MG] 0.4 mg PO DAILY 05/27/22 [History] terbinafine HCL [Terbinafine HCl] 250 mg PO DAILY 05/27/22 [History] Hx Tetanus, Diphtheria Vaccination/Date Given: No Hx Influenza Vaccination/Date Given: No Hx Pneumococcal Vaccination/Date Given: No Travel Risk - International Travel Have you traveled outside of the country in past 3 weeks: No - Coronavirus Screening Are you exhibiting any of the following symptoms?: No - Vaccine Status Have you recieved a Covid-19 vaccination: No - Past Medical History Pertinent Past Medical History: Yes Neurological History: Seizures ENT History: No Pertinent History Cardiac History: High Cholesterol, Hypertension, Other Respiratory History: COPD Endocrine Medical History: Diabetes Type II Musculoskeletal History: Other, Arthritis, Osteoporosis GI Medical History: Ulcer, Hernia, GERD History: No Pertinent History Psycho-Social History: Depression Male Reproductive Disorders: No Pertinent History Other Medical History: Disc compressions, " Vagal nerve stimulator" - Past Surgical History Past Surgical History: Yes Neuro Surgical History: No Pertinent History Cardiac: Cardiac Catheterization Respiratory: No Pertinent History Gastrointestinal: Other, Cholecystectomy Genitourinary: No Pertinent History Musculoskeletal: No Pertinent History Male Surgical History: No Pertinent History, Testicular Surgery Other Surgical History: Two cysts removed- one from big toe and one from testical, " Vagal nerve stimulator" ( remains in place) - Social History Smoking Status: Former smoker How long have you smoked: 6 months Exposure to second hand smoke: No Drug Use: none Patient Lives Alone: No Significant Family History: no pertinent family hx - Review of Systems Constitutional: No Symptoms Eyes: No Symptoms Ears, Nose, & Throat: No Symptoms Respiratory: No Symptoms Cardiac: No Symptoms Abdominal/Gastrointestinal: No Symptoms Genitourinary Symptoms: No Symptoms Musculoskeletal: No Symptoms Skin: No Symptoms Neurological: No Symptoms Endocrine: No Symptoms Hematologic/Lymphatic: No Symptoms Immunological/Allergic: No Symptoms - Nursing Vital Signs Nursing Vital Signs: Initial Vital Signs Temperature 96.0 F 05/27/22 15:44 Pulse Rate 82 05/27/22 15:44 Blood Pressure 120/74 05/27/22 15:44 O2 Sat by Pulse Oximetry 95 05/27/22 15:44 Pain Scale Pain Intensity 0 WNL - Physical Exam General Appearance: no apparent distress Eyes, Ears, Nose, Throat Exam: normal ENT inspection, TMs normal, pharynx normal, moist mucous membranes Neck Exam: normal inspection, non-tender, supple, full range of motion, No Brudzinski, No Kernig's, No meningismus, No carotid bruit Respiratory Exam: normal breath sounds, lungs clear, airway intact, No respiratory distress Cardiovascular Exam: regular rate/rhythm, normal heart sounds, normal peripheral pulses, No murmur Gastrointestinal/Abdominal Exam: soft, normal bowel sounds, No tenderness Extremities Exam: normal inspection, normal range of motion Current Suicidality: denies suicide plan Neurological Exam: alert, sourcing analyst II-XII nml as tested, oriented x 3, flat Appearance: appropriate appearance, appropriate insight, neat, no memory impairment, denies illness Behavior/Eye Contact/Speech: alert & cooperative, good eye contact, normal speech Thoughts/Hallucinations: normal thought pattern, no apparent hallucination, No auditory hallucinations Skin Exam: normal color, warm, dry SpO2 Interpretation: borderline oxygenation SpO2: 92 O2 Delivery: Room Air - Course Nursing assessment & vital signs reviewed: Yes Ordered Tests: Active Orders 24 hr Category Date Time Status ACETAMINOPHEN Stat Lab 05/27/22 16:46 Completed CBC W DIFF Stat Lab 05/27/22 16:46 Completed CMP Stat Lab 05/27/22 16:46 Completed ETHYL ALCOHOL Stat Lab 05/27/22 16:46 Completed SALICYLATE Stat Lab 05/27/22 16:46 Completed UA W/RFX CULTURE Stat Lab 05/27/22 19:47 Completed Urine Triage Profile Stat Lab 05/27/22 19:46 Completed Lab/Rad Data: Laboratory Result Diagrams 05/27/22 16:46 05/27/22 16:46 Laboratory Results 05/27/22 05/27/22 05/27/22 Range/Units 19:47 19:46 19:05 WBC (4.0-10.5) x10^3/uL RBC (4.1-5.6) x10^6/uL Hgb (12.5-18.0) g/dL Hct (42-50) % MCV (78-100) fL MCH (26-32) pg MCHC (32-36) g/dL RDW (11.5-14.0) % Plt Count (150-450) x10^3/uL MPV (7.5-11.0) fL Gran % (36.0-66.0) % Immature Gran % (Auto) (0.00-0.4) % Nucleat RBC Rel Count (0.00-0.1) % Eos # (Auto) (0-0.5) x10^3/uL Immature Gran # (Auto) (0.00-0.03) x10^3u/L Absolute Lymphs (auto) (1.0-4.6) x10^3/uL Absolute Monos (auto) (0.0-1.3) x10^3/uL Absolute Nucleated RBC (0.00-0.01) x10^3u/L Lymphocytes % (24.0-44.0) % Monocytes % (0.0-12.0) % Eosinophils % (0.00-5.0) % Basophils % (0.0-0.4) % Absolute Granulocytes (1.4-6.9) x10^3/uL Basophils # (0-0.4) x10^3/uL Sodium (137-145) mmol/L Potassium (3.5-5.1) mmol/L Chloride (98-107) mmol/L Carbon Dioxide (22-30) mmol/L Anion Gap (5-15) MEQ/L BUN (9-20) mg/dL Creatinine (0.66-1.25) mg/dL Estimated GFR ML/MIN Glucose (74-106) mg/dL Calcium (8.4-10.2) mg/dL Total Bilirubin (0.2-1.3) mg/dL AST (17-59) U/L ALT (0-50) U/L Alkaline Phosphatase (38-126) U/L Serum Total Protein (6.3-8.2) g/dL Albumin (3.5-5.0) g/dL Urinalys Dipstick Clnc MAIN LAB Urine Color YELLOW (YELLOW) Urine Appearance CLEAR (CLEAR) Urine pH 5.5 (5-6) Ur Specific [place] 1.020 (1.005-1.025) POC Urine Protein Conf TRACE A (Negative) Urine Ketones TRACE A (NEGATIVE) Urine Nitrite NEGATIVE (NEGATIVE) Urine Bilirubin NEGATIVE (NEGATIVE) Urine Urobilinogen 1 A (0-1) mg/dL Urine Leukocytes NEGATIVE (NEGATIVE) Urine WBC (Auto) NONE (0-5) /HPF Urine RBC (Auto) 0-2 (0-2) /HPF U Epithel Cells (Auto) RARE (FEW) /HPF Urine Bacteria (Auto) Not Reportable Urine RBC NEGATIVE (0-5) Urban/ul Urine Mucus (Auto) SLIGHT A (NEGATIVE) /HPF Ur Culture Indicated? NO Urine Glucose >=1000 A (NEGATIVE) mg/dL Salicylates (2-20) mg/dL Urine Opiates Level NEGATIVE (NEGATIVE) Ur Methadone NEGATIVE (NEGATIVE) Acetaminophen (10-30) ug/ml Urine Barbiturates NEGATIVE (NEGATIVE) Ur Phencyclidine (PCP) NEGATIVE (NEGATIVE) Urine Amphetamine NEGATIVE (NEGATIVE) U Benzodiazepine Level NEGATIVE (NEGATIVE) Urine Cocaine NEGATIVE (NEGATIVE) Urine Marijuana (THC) NEGATIVE (NEGATIVE) Ethyl Alcohol (0-10) mg/dL Influenza Type A Ag NEGATIVE (NEGATIVE) Influenza Type B Ag NEGATIVE (NEGATIVE) RSV (PCR) NEGATIVE (Negative) SARS-CoV-2 (PCR) NEGATIVE (NEGATIVE) 05/27/22 05/27/22 Range/Units 16:46 16:46 WBC 5.6 (4.0-10.5) x10^3/uL RBC 5.36 (4.1-5.6) x10^6/uL Hgb 15.4 (12.5-18.0) g/dL Hct 47.9 (42-50) % MCV 89.4 (78-100) fL MCH 28.7 (26-32) pg MCHC 32.2 (32-36) g/dL RDW 14.9 H (11.5-14.0) % Plt Count 183 (150-450) x10^3/uL MPV 11.1 H (7.5-11.0) fL Gran % 63.7 (36.0-66.0) % Immature Gran % (Auto) 0.2 (0.00-0.4) % Nucleat RBC Rel Count 0.0 (0.00-0.1) % Eos # (Auto) 0.05 (0-0.5) x10^3/uL Immature Gran # (Auto) 0.01 (0.00-0.03) x10^3u/L Absolute Lymphs (auto) 1.38 (1.0-4.6) x10^3/uL Absolute Monos (auto) 0.55 (0.0-1.3) x10^3/uL Absolute Nucleated RBC 0.00 (0.00-0.01) x10^3u/L Lymphocytes % 24.8 (24.0-44.0) % Monocytes % 9.9 (0.0-12.0) % Eosinophils % 0.9 (0.00-5.0) % Basophils % 0.5 (0.0-0.4) % Absolute Granulocytes 3.55 (1.4-6.9) x10^3/uL Basophils # 0.03 (0-0.4) x10^3/uL Sodium 136 L (137-145) mmol/L Potassium 3.6 (3.5-5.1) mmol/L Chloride 104 (98-107) mmol/L Carbon Dioxide 27 (22-30) mmol/L Anion Gap 8.9 (5-15) MEQ/L BUN 13 (9-20) mg/dL Creatinine 1.24 (0.66-1.25) mg/dL Estimated GFR > 60.0 ML/MIN Glucose 113 H (74-106) mg/dL Calcium 8.9 (8.4-10.2) mg/dL Total Bilirubin 0.90 (0.2-1.3) mg/dL AST 24 (17-59) U/L ALT 21 (0-50) U/L Alkaline Phosphatase 116 (38-126) U/L Serum Total Protein 6.6 (6.3-8.2) g/dL Albumin 3.8 (3.5-5.0) g/dL Urinalys Dipstick Clnc Urine Color (YELLOW) Urine Appearance (CLEAR) Urine pH (5-6) Ur Specific [place] (1.005-1.025) POC Urine Protein Conf (Negative) Urine Ketones (NEGATIVE) Urine Nitrite (NEGATIVE) Urine Bilirubin (NEGATIVE) Urine Urobilinogen (0-1) mg/dL Urine Leukocytes (NEGATIVE) Urine WBC (Auto) (0-5) /HPF Urine RBC (Auto) (0-2) /HPF U Epithel Cells (Auto) (FEW) /HPF Urine Bacteria (Auto) Urine RBC (0-5) Urban/ul Urine Mucus (Auto) (NEGATIVE) /HPF Ur Culture Indicated? Urine Glucose (NEGATIVE) mg/dL Salicylates < 1.0 L (2-20) mg/dL Urine Opiates Level (NEGATIVE) Ur Methadone (NEGATIVE) Acetaminophen < 10 L (10-30) ug/ml Urine Barbiturates (NEGATIVE) Ur Phencyclidine (PCP) (NEGATIVE) Urine Amphetamine (NEGATIVE) U Benzodiazepine Level (NEGATIVE) Urine Cocaine (NEGATIVE) Urine Marijuana (THC) (NEGATIVE) Ethyl Alcohol < 10 (0-10) mg/dL Influenza Type A Ag (NEGATIVE) Influenza Type B Ag (NEGATIVE) RSV (PCR) (Negative) SARS-CoV-2 (PCR) (NEGATIVE) - Progress Progress Note: 05/27/22 21:08 Pt accepted by [facility] Counseled pt/family regarding: lab results, diagnosis, need for follow-up - Departure Departure Disposition: Transfer Clinical Impression: Suicidal ideation Condition: Stable Critical Care Time: No Referrals: CITLALLI GARCIA MD [Primary Care Provider] - Follow up/PCP as directed Instructions: Depression, Adult (DC)
[2022-05-27 21:23] VITALS: BP 140/68
[2022-05-27 21:43] VITALS: PULSE 64
[2022-05-27 22:09] VITALS: O2SAT 92
== END 2022-05-27 21:51 ==
LOC: ED 15:33
DX: R45.851 Suicidal ideations (principal); Z63.0 Problems in relationship with spouse or partner; E78.5 Hyperlipidemia, unspecified; I10 Essential (primary) hypertension; J44.9 Chronic obstructive pulmonary disease, unspecified; E11.9 Type 2 diabetes mellitus without complications; Z79.84 Long term (current) use of oral hypoglycemic drugs; Z79.899 Other long term (current) drug therapy; Z28.310 Unvaccinated for COVID-19; Z20.828 Contact with and (suspected) exposure to other viral communicable diseases
CPT/HCPCS: 0241U; 36415; 80053; 80307; 81015; 85025; 99284; G0480